=== PATIENT | female | born 1985 | race Caucasian/White ===

== ENCOUNTER 2022-11-03 14:46 | Emergency (ER) | payer OTHER, SELFPAY ==
--- NOTE | ~2022-11-03 | XR_ITS ---
EXAMINATION: XR CHEST CLINICAL INFORMATION: Chest pain COMPARISON: 2005. TECHNIQUE: 2 views of the chest were obtained. FINDINGS: No airspace consolidation or vascular congestion. Cardiac size within normal limits. The hilar regions are unremarkable. There is small blunting in a posterior sulcus on the lateral view suggesting a small effusion or pleural reaction. XR/XR chest 2V IMPRESSION: No evidence for focal infiltrate or vascular congestion. Small posterior sulcus blunting on the lateral view may reflect a small effusion or pleural reaction.
--- NOTE | ~2022-11-03 | CT_ITS ---
EXAMINATION: CT HEAD WITHOUT CONTRAST CLINICAL INFORMATION: Headache for 3 months COMPARISON: None. TECHNIQUE: Contiguous axial imaging was performed from the skull base to vertex without intravenous administration of contrast. Coronal and sagittal reformatted images are performed at the CT scanner. [This CT examination was performed using dose optimization techniques as appropriate, variously including the following: *Automated exposure control *Adjustment of mA and/or kV according to patient size (this includes techniques or standardized protocols for targeted exams where dose is matched to indication/reason for exam; i.e. extremities or head) *Use of iterative reconstruction technique] DLP: 684 mGy-cm. FINDINGS: There is no evidence of acute intracranial hemorrhage or territorial infarction. No abnormal mass-effect or midline shift is seen. Irvin to white matter differentiation is well preserved. No extra-axial fluid collections are identified. The ventricles are normal in size. There is no abnormal attenuation within the brain parenchyma. There is no osseous abnormality. The mastoid air cells and visualized portions of the paranasal sinuses are well-aerated. CT/CT head/brain wo IV con IMPRESSION: No acute intracranial pathology.
[2022-11-03 15:46] VITALS: BP 110/69; PULSE 82; RESP 20; TEMP 36.1; O2SAT 98; BMI 38.0
--- NOTE | 2022-11-03 15:46 | ED_ITS ---
HPI - Headache General Chief Complaint: Headache <JOSÉ MIGUEL Read - Last Filed: 11/03/22 15:49> Stated Complaint: Headache sent by PCP <JOSÉ MIGUEL Read - Last Filed: 11/03/22 15:49> Time Seen by Provider: 11/03/22 20:54 <JOSÉ MIGUEL Read - Last Filed: 11/03/22 15:49> Source: patient <Basilio Madden MD - Last Filed: 11/03/22 22:31> Mode of arrival: ambulatory <Basilio Madden MD - Last Filed: 11/03/22 22:31> Limitations: no limitations <Basilio Madden MD - Last Filed: 11/03/22 22:31> History of Present Illness HPI Narrative: 37-year-old female presents with headache. Symptoms started approximately 3 months ago. The location is frontal and parietal. The headache has been constant. There is at least a 6/10 pain but can take exacerbated to a 10/10 pain. Currently the pain is a 9/10. The pain is more severe, she does have photophobia. She denies any neck pain or stiffness. She denies any head injury, trauma. The pain does not radiate. There has been no fevers or chills. She denies any rashes. She has been seen by her primary care provider as well as telehealth. They prescribed her antibiotics and steroids for a possible sinus infection as well as Imitrex with propranolol. No these medications of his improved her symptoms. Today she did take ibuprofen 800 mg in the morning without improvement. She is set to have an appointment with a neurologist in [address] scan later this week. Additionally, patient complained of mild upper chest pain. The pain lasted for couple of hours that was burning and pressure in nature. Was not associated with exertion. There is no shortness of breath, palpitations, lightheadedness, lower extremity edema, orthopnea, PND, JONES. Patient has no history of recent surgery, travel, DVT, PE. <Basilio Madden MD - Last Filed: 11/03/22 22:31> MD elicited complaint: headache <Basilio Madden MD - Last Filed: 11/03/22 22:31> Onset (ago): month(s) (3) <Basilio Madden MD - Last Filed: 11/03/22 22:31> Onset description: gradually <Basilio Madden MD - Last Filed: 11/03/22 22:31> Location: frontal and parietal <Basilio Madden MD - Last Filed: 11/03/22 22:31> Severity: severe <Basilio Madden MD - Last Filed: 11/03/22 22:31> Quality & Timing: throbbing, steady, constant and pressure <Basilio Madden MD - Last Filed: 11/03/22 22:31> Exacerbating factors: light <Basilio Madden MD - Last Filed: 11/03/22 22:31> Relieving factors: nothing <Basilio Madden MD - Last Filed: 11/03/22 22:31> Associated symptoms: none <Basilio Madden MD - Last Filed: 11/03/22 22:31> Treatments prior to arrival: ibuprofen and migraine medication <Basilio Madden MD - Last Filed: 11/03/22 22:31> Related Data Home Medications: Previous Rx's Medication Instructions Recorded qwolzwbjdn-ntmmkfsgcdknv-mnsxdnsd 1 cap PO Q4-6H PRN pain #14 caps 11/03/22 50 mg-300 mg-40 mg capsule (Fioricet) <JOSÉ MIGUEL Read - Last Filed: 11/03/22 15:49> Allergies/Adverse Reactions: Allergies Allergy/AdvReac Type Severity Reaction Status Date / Time sulfamethoxazole Allergy Rash Verified 11/03/22 15:49 [From Bactrim] trimethoprim [From Bactrim] Allergy Rash Verified 11/03/22 15:49 <JOSÉ MIGUEL Read - Last Filed: 11/03/22 15:49> Review of Systems Review of Systems: CONSTITUTIONAL: Denies weight loss, fever and chills. HEENT: Denies changes in vision and hearing. RESPIRATORY: Denies SOB and cough. CV: Denies palpitations + CP. GI: Denies abdominal pain, nausea, vomiting and diarrhea. : Denies dysuria and urinary frequency. MSK: Denies myalgia and joint pain. SKIN: Denies rash and pruritus. NEUROLOGICAL: + headache no syncope. PSYCHIATRIC: Denies recent changes in mood. Denies anxiety and depression. All other ROS are negative unless in HPI <Basilio Madden MD - Last Filed: 11/03/22 22:31> [facility] Social History Social History: Social History Advance Directives: No Advance Directives Information Provided: No <JOSÉ MIGUEL Read - Last Filed: 11/03/22 15:49> Physical Exam Vital Signs: Vital Signs: Last Vital Signs Temp 98.2 F 11/03/22 18:11 Pulse 87 11/03/22 18:11 Resp 16 11/03/22 18:11 BP 99/68 11/03/22 18:11 Pulse Ox 97 11/03/22 18:11 O2 Del Method 11/03/22 18:11 BMI result Body Mass Index 38.0 <JOSÉ MIGUEL Read - Last Filed: 11/03/22 15:49> Vital Signs: Last Vital Signs Temp 98.2 F 11/03/22 18:11 Pulse 87 11/03/22 18:11 Resp 16 11/03/22 18:11 BP 99/68 11/03/22 18:11 Pulse Ox 97 11/03/22 18:11 O2 Del Method 11/03/22 18:11 BMI result Body Mass Index 38.0 <Basilio Madden MD - Last Filed: 11/03/22 22:31> GEN: Well developed, no acute distress, alert, oriented HEENT: Normocephalic, atraumatic, normal external ears, nose appears normal, no oropharyngeal edema or exudates Eyes: Normal to appearance, no papilledema, no AV nicking, no exudates, cotton wool spots or hemorrhages Neck: Supple, no lymphadenopathy Respiratory: Talks in complete sentences, no respiratory distress, clear to auscultation bilaterally Cardiovascular: Regular rate and rhythm, no murmurs rubs or gallops Abdomen: Soft, nontender, nondistended, no guarding, no rebound Back: No CVA tenderness Extremities: No clubbing cyanosis or edema Neurologic: No focal neurologic deficits, cranial nerves 2-12 intact, strength is 5/5 bilaterally, gait normal Skin: No rash <Basilio Madden MD - Last Filed: 11/03/22 22:31> Course Course Course Narrative: RME - 37 female presenting to the ER for evaluation of a tension headache for the last 10 weeks that has been worsening despite Imitrex and Propranolol. Unable to get in with neurology for another month. Last night developed intermittent left sided chest pains that radiate to the back. +nausea. No vomiting, diarrhea, or fevers. Plan: labs, medicate headache in the ER <JOSÉ MIGUEL Read - Last Filed: 11/03/22 15:49> Reevaluation(s) Reevaluation #1: Patient presents with headache. Headache minute ongoing for approximately 3 months. Examination revealed no focal neurologic deficits. She had no nuchal rigidity, neck stiffness or fever to suggest meningitis. There is no subarachnoid hemorrhage symptoms such as sudden thunderclap headache, neck stiffness. She has no focal deficits and therefore I doubt mass effect. However, given the duration of symptoms, imaging is warranted at this time. Will order CT scan. Would recommend likely MRI as an outpatient. She does have a follow-up appointment with a neurologist in approximately 1 month. Patient will have IV access obtained and multiple medications will be given order to a ttempt to abort the headache <Basilio Madden MD - Last Filed: 11/03/22 22:31> Time: 21:15 <Basilio aMdden MD - Last Filed: 11/03/22 22:31> Reevaluation #2: I discussed all results with the patient. She is currently in the process of getting treated. <Basilio Madden MD - Last Filed: 11/03/22 22:31> Time: 21:53 <Basilio Madden MD - Last Filed: 11/03/22 22:31> Reevaluation #3: Patient's pain is currently a 4/10. She will be discharged at this time. Discussed on medications, appropriate use of medications and discharge plan. All questions were addressed and answered. <Basilio Madden MD - Last Filed: 11/03/22 22:31> Time: 22:31 <Basilio Madden MD - Last Filed: 11/03/22 22:31> Medications Administered Discontinued Medications Generic Name Dose Route Start Last Admin Trade Name Freq PRN Reason Stop Dose Admin Acetaminophen/Butalbital/Caffeine 1 tab 11/03/22 21:07 11/03/22 21:33 Butalb/Acetamin/Caff 50/325/40 Tablet PO 11/03/22 21:08 1 tab ONCE ONE Administration Dexamethasone Sodium Phosphate 10 mg 11/03/22 21:07 11/03/22 21:43 Dexamethasone Sod Phosphate 10 Mg/Ml Vial IVPUSH 11/03/22 21:08 10 mg ONCE ONE Administration Dihydroergotamine Mesylate 1 mg 11/03/22 21:15 11/03/22 21:51 Dihydroergotamine Mesylate 1 Mg/Ml Ampul IVPUSH 11/03/22 22:16 1 mg Q1H JERRY Administration Diphenhydramine HCl 25 mg 11/03/22 21:07 11/03/22 21:43 Diphenhydramine Hcl 50 Mg/Ml Vial IVPUSH 11/03/22 21:08 25 mg ONCE ONE Administration Ketorolac Tromethamine 15 mg 11/03/22 21:07 11/03/22 21:43 Ketorolac Tromethamine 15 Mg/Ml Vial IVPUSH 11/03/22 21:08 15 mg ONCE ONE Administration Prochlorperazine Edisylate 10 mg 11/03/22 21:07 11/03/22 21:43 Prochlorperazine Edisylate 10 Mg/2 Ml Vial IVPUSH 11/03/22 21:08 10 mg ONCE ONE Administration <JOSÉ MIGUEL Read - Last Filed: 11/03/22 15:49> Medications Administered Discontinued Medications Generic Name Dose Route Start Last Admin Trade Name Freq PRN Reason Stop Dose Admin Acetaminophen/Butalbital/Caffeine 1 tab 11/03/22 21:07 11/03/22 21:33 Butalb/Acetamin/Caff 50/325/40 Tablet PO 11/03/22 21:08 1 tab ONCE ONE Administration Dexamethasone Sodium Phosphate 10 mg 11/03/22 21:07 11/03/22 21:43 Dexamethasone Sod Phosphate 10 Mg/Ml Vial IVPUSH 11/03/22 21:08 10 mg ONCE ONE Administration Dihydroergotamine Mesylate 1 mg 11/03/22 21:15 11/03/22 21:51 Dihydroergotamine Mesylate 1 Mg/Ml Ampul IVPUSH 11/03/22 22:16 1 mg Q1H JERRY Administration Diphenhydramine HCl 25 mg 11/03/22 21:07 11/03/22 21:43 Diphenhydramine Hcl 50 Mg/Ml Vial IVPUSH 11/03/22 21:08 25 mg ONCE ONE Administration Ketorolac Tromethamine 15 mg 11/03/22 21:07 11/03/22 21:43 Ketorolac Tromethamine 15 Mg/Ml Vial IVPUSH 11/03/22 21:08 15 mg ONCE ONE Administration Prochlorperazine Edisylate 10 mg 11/03/22 21:07 11/03/22 21:43 Prochlorperazine Edisylate 10 Mg/2 Ml Vial IVPUSH 11/03/22 21:08 10 mg ONCE ONE Administration <Basilio Madden MD - Last Filed: 11/03/22 22:31> Medical Decision Making Medical Decision Making MDM Narrative: This patient presents with headache most consistent with tension headache versus migraine. Differential diagnosis includes migraine headache, tension headache, cluster headache. There are no red flag symptoms or physical findings. Neurologic exam is without evidence of meningismus or focal neurologic deficits. Prayed patient's presentation is not consistent with an acute intracranial bleed such as a subarachnoid hemorrhage, subdural hematoma or epidural hematoma. The presentation is also not consistent with an acute REHABILITATION SERVICES DIRECTOR infection which includes meningitis, brain abscess. Given the patient's age, temporal arteritis is unlikely. It is also unlikely the patient has acute closed angle glaucoma. Presentation is not consistent with other acute/emergent causes of headache at this time. We plan to treat the patient symptomatically with pain medications. We will obtain a CT scan given the duration of her symptoms. There is no definite indication for LP at this time. The plan for the patient will be CT scan of the brain and serial reassessments. Additionally, patient complained of chest pain earlier today. She feels that this is most likely indigestion. Her chest pain was not associated with exertion. There is no shortness of breath, palpitations, lightheadedness. EKG is nonischemic. Will undertake routine laboratory analysis to further assess this. <Basilio Madden MD - Last Filed: 11/03/22 22:31> Differential Diagnosis Differential Diagnoses: The differential diagnosis associated with the presentation includes (Tension headache, migraine headache, cluster headache, sinus headache, doubt subarachnoid hemorrhage, subdural hematoma, epidural hematoma, REHABILITATION SERVICES DIRECTOR infection) <Basilio Madden MD - Last Filed: 11/03/22 22:31> Admission/Observation Consideration of admission/observation: Escalation of care including admission/observation considered <Basilio Madden MD - Last Filed: 11/03/22 22:31> Lab Data MDM Lab Attestation statement: I reviewed the patient's lab results. <Basilio Madden MD - Last Filed: 11/03/22 22:31> Result Diagrams: 11/03/22 17:58 11/03/22 17:58 <JOSÉ MIGUEL Read - Last Filed: 11/03/22 15:49> Labs: Lab Results 11/03/22 11/03/22 11/03/22 Range/Units 17:58 17:58 17:58 WBC 11.6 H (4.8-10.8) X10*3/uL RBC 4.93 (4.20-5.50) X10*6/uL Hgb 14.8 (12.0-16.0) g/dl Hct 45.1 (37.0-47.0) % MCV 91.5 (80.0-98.0) fL MCH 30.0 (27.0-33.0) pg MCHC 32.8 (31.0-35.0) g/dl RDW 14.0 (11.0-16.0) % Plt Count 268 (160-400) X10*3/uL MPV 10.1 (9.4-12.3) fL Immature Gran % (Auto) 0.8 H (0.0-0.4) % Neut % (Auto) 81.1 H (45-73) % Lymph % (Auto) 12.3 L (20-40) % Mccormick % (Auto) 4.7 (2-11) % Eos % (Auto) 0.8 (0-4) % Baso % (Auto) 0.3 (0-2) % Lymph # (Auto) 1.4 (1.2-4.9) X10*3/uL Mccormick # (Auto) 0.6 (0.1-1.2) X10*3/uL Eos # (Auto) 0.1 (0.0-0.4) X10*3/uL Baso # (Auto) 0.0 (0.0-0.2) X10*3/uL Abs Immat Gran (auto) 0.09 H (0.00-0.03) X10*3/uL Absolute Neuts (auto) 9.5 H (2.0-8.3) x10*3/uL Absolute Nucleated RBC 0.000 (0.0-0.012) X10*3/uL Nucleated RBC % (auto) 0.0 (0.0-0.2) /100WBC Sodium 139 (135-145) mmol/L Potassium 4.0 (3.3-5.1) mmol/L Chloride 103 (96-108) mmol/L Carbon Dioxide 26 (22-29) mmol/L Anion Gap 14 (12-20) BUN 18 H (9-16) mg/dL Creatinine 0.81 (0.5-1.4) mg/dL Estim Creat Clear Calc 103.7 Estimated GFR > 60 Random Glucose 103 (60-115) mg/dL Calcium 8.8 (8.4-10.2) mg/dL Magnesium 2.2 (1.6-2.6) mg/dL Total Bilirubin 0.6 (0.0-1.0) mg/dL Direct Bilirubin 0.2 (0.0-0.5) mg/dL AST 19 (5-31) U/L ALT 19 (0-31) U/L Alkaline Phosphatase 75 (39-117) U/L Total Protein 6.8 (6.5-8.0) g/dL Albumin 4.2 (3.5-5.0) g/dL Lipase 24 (8-78) U/L Urine Color Yellow Urine Appearance Clear Urine pH 5.5 (5.0-9.0) Ur Specific Bandon 1.025 (1.005-1.025) Urine Protein Negative (Neg-Trace) mg/dL Urine Glucose (UA) Negative (Negative) mg/dL Urine Ketones Negative (Negative) mg/dL Urine Blood Negative (Negative) Urine Nitrite Negative (Negative) Ur Leukocyte Esterase Negative (Negative) <JOSÉ MIGUEL Read - Last Filed: 11/03/22 15:49> Lab Results 11/03/22 11/03/22 11/03/22 Range/Units 17:58 17:58 17:58 WBC 11.6 H (4.8-10.8) X10*3/uL RBC 4.93 (4.20-5.50) X10*6/uL Hgb 14.8 (12.0-16.0) g/dl Hct 45.1 (37.0-47.0) % MCV 91.5 (80.0-98.0) fL MCH 30.0 (27.0-33.0) pg MCHC 32.8 (31.0-35.0) g/dl RDW 14.0 (11.0-16.0) % Plt Count 268 (160-400) X10*3/uL MPV 10.1 (9.4-12.3) fL Immature Gran % (Auto) 0.8 H (0.0-0.4) % Neut % (Auto) 81.1 H (45-73) % Lymph % (Auto) 12.3 L (20-40) % Mccormick % (Auto) 4.7 (2-11) % Eos % (Auto) 0.8 (0-4) % Baso % (Auto) 0.3 (0-2) % Lymph # (Auto) 1.4 (1.2-4.9) X10*3/uL Mccormick # (Auto) 0.6 (0.1-1.2) X10*3/uL Eos # (Auto) 0.1 (0.0-0.4) X10*3/uL Baso # (Auto) 0.0 (0.0-0.2) X10*3/uL Abs Immat Gran (auto) 0.09 H (0.00-0.03) X10*3/uL Absolute Neuts (auto) 9.5 H (2.0-8.3) x10*3/uL Absolute Nucleated RBC 0.000 (0.0-0.012) X10*3/uL Nucleated RBC % (auto) 0.0 (0.0-0.2) /100WBC Sodium 139 (135-145) mmol/L Potassium 4.0 (3.3-5.1) mmol/L Chloride 103 (96-108) mmol/L Carbon Dioxide 26 (22-29) mmol/L Anion Gap 14 (12-20) BUN 18 H (9-16) mg/dL Creatinine 0.81 (0.5-1.4) mg/dL Estim Creat Clear Calc 103.7 Estimated GFR > 60 Random Glucose 103 (60-115) mg/dL Calcium 8.8 (8.4-10.2) mg/dL Magnesium 2.2 (1.6-2.6) mg/dL Total Bilirubin 0.6 (0.0-1.0) mg/dL Direct Bilirubin 0.2 (0.0-0.5) mg/dL AST 19 (5-31) U/L ALT 19 (0-31) U/L Alkaline Phosphatase 75 (39-117) U/L Total Protein 6.8 (6.5-8.0) g/dL Albumin 4.2 (3.5-5.0) g/dL Lipase 24 (8-78) U/L Urine Color Yellow Urine Appearance Clear Urine pH 5.5 (5.0-9.0) Ur Specific Bandon 1.025 (1.005-1.025) Urine Protein Negative (Neg-Trace) mg/dL Urine Glucose (UA) Negative (Negative) mg/dL Urine Ketones Negative (Negative) mg/dL Urine Blood Negative (Negative) Urine Nitrite Negative (Negative) Ur Leukocyte Esterase Negative (Negative) <Basilio Madden MD - Last Filed: 11/03/22 22:31> Independent Interpretation I performed an independent interpretation of an: EKG (Normal sinus rhythm heart rate 82, normal intervals, no acute ST elevations or depressions, poor precordial progression likely secondary to lead placement), Plain X-Ray (No acute cardiopulmonary disease) and CT Scan (CT brain no acute intracranial findings, no evidence of sinusitis) <Basilio Madden MD - Last Filed: 11/03/22 22:31> Radiology Impression Discussion of test interpretation with radiology: I have reviewed the radiologist's reading. (IMPRESSION: No evidence for focal infiltrate or vascular congestion. Small posterior sulcus blunting on the lateral view may reflect a small effusion or pleural reaction. Dictated By:Carson ObrienSigned By:<Electronically signed by Carson Obrien in OV>11/03/22 1629) <Basilio Madden MD - Last Filed: 11/03/22 22:31> Radiologist Impression: IMPRESSION: No acute intracranial pathology. ? ? Dictated By: Sudheer Carroll MD Signed By: <Electronically signed by Sudheer Carroll MD in OV> 11/03/22 8151 <Basilio Madden MD - Last Filed: 11/03/22 22:31> External Record Review No additional records available <Basilio Madden MD - Last Filed: 11/03/22 22:31> Prescription Management I considered prescription management with: Pain Medication <Basilio Madden MD - Last Filed: 11/03/22 22:31> Discharge Plan Discharge Clinical Impression: Headache, Atypical chest pain <JOSÉ MIGUEL Read - Last Filed: 11/03/22 15:49> Patient Disposition: Home, Self-Care <JOSÉ MIGUEL Read - Last Filed: 11/03/22 15:49> Instructions: Chest Pain (DC), Acute Headache (ED), General Headache (ED) <JOSÉ MIGUEL Read - Last Filed: 11/03/22 15:49> Prescriptions: New ceditpshng-ahphzgktituby-xocy [Fioricet] 50-300-40 mg capsule 1 cap PO Q4-6H PRN (Reason: pain) Qty: 14 0RF <JOSÉ MIGUEL Read - Last Filed: 11/03/22 15:49> Referrals: Fany Covington MD [Primary Care Provider] - 1 week <JOSÉ MIGUEL Read - Last Filed: 11/03/22 15:49>
--- NOTE | 2022-11-03 15:49 | ECG_ITS ---
Test Reason : HEADACHE Blood Pressure : / mmHG Vent. Rate : 082 BPM Atrial Rate : 082 BPM P-R Int : 160 ms QRS Dur : 078 ms QT Int : 366 ms P-R-T Axes : 064 034 039 degrees QTc Int : 427 ms Normal sinus rhythm Anteroseptal infarct , age undetermined Abnormal ECG No previous ECGs available Referred By: Floridalma Choi Electronically Signed By:ABRIL STANLEY
[2022-11-03 18:11] VITALS: BP 99/68; PULSE 87; RESP 16; TEMP 36.8; O2SAT 97
[2022-11-03 18:16] LABS: MANUAL DIFF FLAG NO
[2022-11-03 18:19] LABS: Appearance Urine Clear; Color Urine Yellow; Glucose Urine UA Negative (Negative); Leukocyte Esterase Urine Negative (Negative); Nitrite Urine Negative (Negative); PH 5.5 (5.0-9.0); Specific Gravity - Urine 1.025 (1.005-1.025); Urine Blood Negative (Negative); Urine Ketones Negative (Negative); Urine Protein Negative (Neg-Trace)
[2022-11-03 18:33] LABS: Alanine Aminotransferase 19 U/L (0-31); Albumin Level 4.2 g/dL (3.5-5.0); Alkaline Phosphatase 75 U/L (39-117); Anion Gap 14 (12-20); Aspartate Amino Transferase 19 U/L (5-31); Bilirubin Direct 0.2 mg/dL (0.0-0.5); Bilirubin Total 0.6 mg/dL (0.0-1.0); Blood Urea Nitrogen 18 mg/dL (9-16); Calcium 8.8 mg/dL (8.4-10.2); Carbon Dioxide 26 mmol/L (22-29); Chloride 103 mmol/L (96-108); Creatinine Clr Calc Pharmacy 103.7; Estimated Glomerular Filt Rate > 60; Glucose Random 103 mg/dL (60-115); Lipase 24 U/L (8-78); Magnesium 2.2 mg/dL (1.6-2.6); Sodium 139 mmol/L (135-145); Total Protein 6.8 g/dL (6.5-8.0)
[2022-11-03 18:36] LABS: Basophils Percent Auto 0.3 % (0-2); Eosinophils Absolute Auto 0.1 X10*3/uL (0.0-0.4); Eosinophils Percent Auto 0.8 % (0-4); Hematocrit 45.1 % (37.0-47.0); Hemoglobin 14.8 g/dl (12.0-16.0); Imm Gran Abs Auto 0.09 X10*3/uL (0.00-0.03); Imm Gran Pct Auto 0.8 % (0.0-0.4); Lymphocytes Absolute Auto 1.4 X10*3/uL (1.2-4.9); Lymphocytes Percent Auto 12.3 % (20-40); Mean Corpuscular HGB Conc 32.8 g/dl (31.0-35.0); Mean Corpuscular Volume 91.5 fL (80.0-98.0); Mean Platelet Volume 10.1 fL (9.4-12.3); Monocytes Absolute Auto 0.6 X10*3/uL (0.1-1.2); Monocytes Percent Auto 4.7 % (2-11); Neutrophils Absolute Auto 9.5 x10*3/uL (2.0-8.3); Neutrophils Percent Auto 81.1 % (45-73); Platelet Count 268 X10*3/uL (160-400); Red Blood Count 4.93 X10*6/uL (4.20-5.50); White Blood Count 11.6 X10*3/uL (4.8-10.8)
[2022-11-03] MEDS: Butalb/Acetamin/Caff 50/325/40 TABLET 1 TAB PO (21:33)
[2022-11-03] MEDS: Prochlorperazine Edisylate 10 MG/2 ML VIAL IVPUSH (21:43)
[2022-11-03] MEDS: Ketorolac Tromethamine 15 MG/ML VIAL IVPUSH (21:43)
[2022-11-03] MEDS: dexAMETHasone sod phosphate 10 MG/ML VIAL IVPUSH (21:43)
[2022-11-03] MEDS: diphenhydrAMINE HCL 50 MG/ML VIAL 25 MG IVPUSH (21:43)
[2022-11-03] MEDS: Dihydroergotamine Mesylate 1 MG/ML AMPUL IVPUSH (21:51)
--- NOTE | 2022-11-03 21:56 | PC.NURSE ---
pt medicated per provider order for 05/10 migraine, provider at bedside.
[2022-11-06 08:33] LABS: Lyme Abs Screen <0.90 index
== END 2022-11-03 22:59 | disposition home or self-care (01) ==
PROVIDERS: Physician Assistant; Emergency Provider Emergency Medicine; PCP Internal Medicine
DX: R51.9 Headache, unspecified (principal); R07.89 Other chest pain; Z79.899 Other long term (current) drug therapy
CPT/HCPCS: 36415; 70450; 71046; 80048; 80076; 81003; 83690; 83735; 85025; 86617; 86618; 93005; 96374; 96375; 99284; J1100; J1110; J1200; J1885

== ENCOUNTER 2024-11-04 12:28 | Outpatient (AMB) | payer OTHER, SELFPAY ==
--- NOTE | 2024-11-04 12:29 | A.OFFVIS_ITS ---
Vital Signs 11/04/24 12:30 Height 5 ft 3 in Weight 217 lb BMI 38.4 BP 134/72 Blood Pressure Location Lt brachial Respiration 16 Pulse 101 H Pulse Source Pulse Oximeter Pulse Oximetry (%) 97 Oxygen Delivery Method Room Air Intake Visit Reasons: Chronic Intractable Headaches Storage Management Architect Required: No Allergies sulfamethoxazole [From Bactrim] Allergy (Verified 11/04/24 12:31) Rash trimethoprim [From Bactrim] Allergy (Verified 11/04/24 12:31) Rash Medication List - Last Reconciled 11/04/24 by Joanne Doss LPN atomoxetine (Strattera) 36 mg PO DAILY cholecalciferol (vitamin D3) 50 mcg PO DAILY loratadine (Claritin) 10 mg PO DAILY methylphenidate HCl ER (Concerta) 18 mg PO DAILY norethindrone-e.estradiol-iron 1 mg-20 mcg (21)/75 mg (7) (Blisovi Fe 09/19 (28)) 1 tab PO DAILY sertraline 100 mg PO DAILY HPI HPI Chronic Intractable Headaches: Details: History of Present Illness The patient is a 39-year-old female presenting with chronic intractable headache. She reports daily headaches, unresponsive to multiple treatments including Amovig, triptans, beta blockers, antiepileptics, and antineuropathics. She even completed 6 months of acylovir to rule out viral meningitis as a cause. Diagnostic imaging and spinal taps have been negative, and physical therapy failed to provide relief. Massage therapy offers modest symptom relief. Neck stiffness and poor daytime fatigue from inadequate sleep quality persist. Symptoms originate from the occipital region and radiate to the crown and frontal parts of the head. Pain Description - Onset and Timing: Persistent daily headaches since November of the previous year. - Quality: Chronic and intractable. - Primary Location: Occipital region with radiation to the crown and frontal parts of the head. - Factors Alleviating Pain: Massage therapy every three weeks provides some reduction in intensity. 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 Physical Exam - Appears afebrile. - Alert and oriented. - Mood and affect appropriate. - Follows and participates in conversation appropriately. - Respiratory effort is unlabored. - Able to transition from sit to stand unassisted. - Ambulates with bilaterally normal heel strike and toe off. - Able to stand and walk on toes and heels. Results - MRI Brain: Negative - Spinal Tap: Negative Pain Management - Affect: Reports fatigue due to poor sleep quality; no mood disturbances explicitly mentioned. - Analgesia: Multiple ineffective pharmacological treatments; massage therapy provides some relief. - Adverse Effects: Not explicitly noted during the conversation. - Activities of Daily Living: Fatigue impacts daily activities and work; sleep affected. - Aberrant Drug Related Behaviors: None reported. Physical Exam Vital Signs: Last Vital Signs Pulse 101 H 11/04/24 12:30 Resp 16 11/04/24 12:30 BP 134/72 11/04/24 12:30 Pulse Ox 97 11/04/24 12:30 Oxygen Delivery Method Room Air 11/04/24 12:30 BMI result Body Mass Index 38.4 Assessment & Plan Assessment & Plan (1) Migraine headache: Code(s): G43.909 - Migraine, unspecified, not intractable, without status migrainosus Category: Medical (2) Occipital neuralgia: Code(s): M54.81 - Occipital neuralgia Category: Medical Plan Plan For the management of chronic intractable headache, a trial of Botox following the migraine protocol is recommended to assess its effectiveness. Should the Botox trial not yield desired results, exploring the option of occipital nerve stimulation for occipital neuralgia might be necessary. The patient understands and has agreed to proceed once authorization is obtained. Patient was informed and verbally consented to the use of an ambient scribe for clinic note documentation during this visit. Discussion Notes I discussed with the patient the persistent nature of her chronic intractable headaches and proposed a trial of Botox per the migraine protocol in an effort to alleviate symptoms. We also reviewed the possibility of occipital nerve stimulation as an alternative if Botox does not provide sufficient relief. The patient was informed about the procedure's potential benefits, risks, and the need for authorization before proceeding. She expressed understanding and consent to proceed with the trial pending authorization. Patient Instructions - Wait for prior authorization for Botox therapy and follow up on its progress. - Continue engaging in regular massage therapy every three weeks as it provides some relief. - Maintain a daily stretching regimen and ensure comfortable work posture. - Monitor headache patterns and sleep quality, reporting any changes. Coding Level of Care Code New Pt Level 4 (24973) Diagnoses Migraine headache G43.909 Occipital neuralgia M54.81
[2024-11-04 12:30] VITALS: BP 134/72; PULSE 101; RESP 16; O2SAT 97; BMI 38.4
--- OUTSIDE RECORDS SUMMARY | 2024-11-04 14:06 | XMS_ITS ---
Author Organization [facility] Address [address] [place] [address] Care Team Providers Care Animal Laboratory Helper Name Role Phone Ashok Perrin Primary Care Provider Tanvir Zepeda Unavailable [phone] REASON FOR VISIT NO CONTACT WITH PATIENT [...] 10 MG Oral for 10 Days Not-Taking Jwmruvbpky-KSYU-Cbskvvgj 50-325-40 MG Oral for 5 Days Not-Taking [...] Active Encounters Encounter Location Date Provider Diagnosis [facility], [address] [place] [address] 08/03/2024 Tanvir Mcdermott Plan Of Treatment No Information Progress Notes * Gosia BEEDOB: 3 (39 yo F)Acc No.[id number]:08/03/2024 Patient:?Gosia BEE Provider:?Tanvir Mcdermott MD :1985???Age:39 Y???Sex:Female D ate:08/03/2024 Address:[address] [place] [id number] Pcp:Ashok Perrin Subjective: * Chief Complaints: * ???1. NO CONTACT WITH PATICARLA T BY TELEPHONE, HEALOW OR ZOOM.. * Medical History:? * Medications:?Taking Fexofena dine HCl 180 MG Tablet 1 tablet Swallow whole with water; do not take with fruit juices. Orally Once a day , Taking Ibuprofen 200 MG Tablet 4 tabs prn Orally Three times a day uses 20 tabs/week, Taking Vitamin D 50 MCG (1999 UT) Tablet 1 tablet Orally Once a day , Taking 1.5-30 MG-MCG Tablet TAKE 1 TABLET BY [...] predniSONE 10 MG Tablet Oral , Not-Taking Cmowympdnx-HRIG-Amhapjfj 50-325-40 MG Tablet Oral , Not-Taking Propranolol [...] Pack FOLLOW PACKAGE DIRECTIONS Oral Objective: * Vitals:? Assessment: Plan: * Treatment: * Billing Information: * Visit Code:? * Procedure Codes:? * Electronic [place], [id number] on 11/04/2024 at 02:05 PM EST Sign off status: Pending * Provider:?Tanvir Mcdermott MD Date:?11/2023 Generated for Chio reis/Loren/Delonitting on:?11/04/2024 02:05 PM EST
--- OUTSIDE RECORDS SUMMARY | 2024-11-04 14:06 | XMS_ITS | Clinical Summary ---
Author Organization [facility] Address [address] [place] [address] Care Team Providers Care Compressed Gas Tester Name Role Phone Fany Covington MD Primary Care Provider [phone] Allergies Active Allergy Reactions Criticality Noted Date Comments Meperidine Itching 04/05/2008 Sulfamethoxazole-Trimethoprim Rash Low 2021 Medications Medication Sig Dispensed Refills Start Date End Date Status loratadine (CLARITIN) 10 MG tablet Take 1 tablet (10 mg total) by mouth daily. 0 Active sertraline (ZOLOFT) 100 MG tablet Take 1 tablet (100 mg total) by mouth daily. 0 Active vitamin D3 (cholecalciferol) 25 MCG (1000 UT) tablet Take 1 tablet (25 mcg total) by mouth daily. 0 Active Magnesium 400 MG TABS Take 400 mg by mouth daily. 30 tablet 3 12/16/2022 Active Riboflavin 400 MG CAPS Take 400 mg by mouth daily. 30 capsule 0 12/16/2022 Active Junel FE 1.530 1.5-30 MG-MCG tablet Take 1 tablet by mouth daily. 0 02/27/2023 Active Multiple Vitamins-Minerals (HAIR SKIN AND NAILS FORMULA PO) Take by mouth. 0 Active butalbital-acetaminop hen-caffeine 50-325-40 MG per tablet Take 1 tablet by mouth every 4 (four) hours as needed for pain. 20 tablet 0 07/17/2023 Active Active Problems No known active problems Family History Medical History Relation Name Comments No Sig Med Hx Father No Sig Med Hx Mother Relation Name Status Comments Father Alive Mother Alive Social History Tobacco Use Types Packs/Day Years Used Date Smoking Tobacco: Never Passive Smoke Exposure: Never Smokeless Tobacco: Never Tobacco Cessation:Counseling Given: Not Answered Alcohol Use Standard Drinks/Week Comments Not Currently 0 (1 standard drink = 0.6 oz pur e alcohol) Sex and Gender Information Value Date Recorded Sex Assigned at Female 10/30/2022 6:48 AM EST Gender Identity Not on file Sexual Orientation Not on file Job Start Date Occupation Industry Not on file Not on file Not on file Last Filed Vital Signs Vital Sign Reading Time Taken Comments Blood Pressure 105/73 07/17/2023 9:12 AM EST Pulse 73 07/17/2023 9:12 AM EST Temperature 36.1 ??C (96.9 ??F) 07/17/2023 9:12 AM ES T Respiratory Rate 16 03/17/2023 10:16 AM EDT Oxygen Saturation 97% 07/17/2023 9:12 AM EST Inhaled Oxygen Concentration - - Weight 98.9 kg (218 lb) 07/17/2023 9:12 AM EST Height 157.5 cm (5' 2 ) 07/17/2023 9:12 AM EST Body Mass Index 39.87 07/17/2023 9:12 AM EST Plan of Treatment Health Maintenance Due Date Last Done Comments Hepatitis B Vaccines (1 of 3 - 3-dose series) 1983 Hepatitis C Screening 1983 Depression Screening 1995 BMI Counseling 2001 Preventative Health Evaluation 2001 Cervical Cancer Screening (Pap Smear) 2004 COVID-19 Vaccine ( season) 2024 08/26/2021 Influenza Vaccine (#1) 2024 , 06/26/2020, 07/07/2018, Additional history exists DTap / Tdap / Td (4 - Td or Tdap) 08/18/2026 08/18/2016, 12/11/2012, 04/05/2008 Pneumococcal Vaccine Aged Out No long er eligible based on patient's age to complete this topic RSV Ped < 20 months Aged Out No longe r eligible based on patient's age to complete this topic Care Teams Compressed Gas Tester Relationship Specialty Start Date End Date Fany Covington MD PCP - General Internal Medicine 12/16/22
--- OUTSIDE RECORDS SUMMARY | 2024-11-04 14:06 | XMS_ITS | Clinical Summary ---
Author Organization [address] Address [address] [place], [place] [address] [address] Phone Care Team Providers Care Alterations Manager Name Role Phone Fany Covington MD Primary Care Provider [phone] Allergies Active Allergy Reactions Criticality Noted Date Comments Meperidine Hcl Itching 04/05/2008 Metoclopramide Hcl 11/11/2022 Irritability Sulfamethoxazole-Trimethoprim Rash Low 2021 Medications cholecalciferol (VITAMIN D-3) 25 mcg (1,000 unit) tablet Take 1 tablet (1,000 Units total) by mouth 1 (one) time each day. Active fexofenadine (SADI) 180 mg tablet Take 1 tablet (180 mg total) by mouth 1 (one) time each day. 4 Active norethindrone-e thinyl estradiol-iron (Junel FE .,) 1.5 mg-30 mcg (21)/75 mg (7) per tablet Take 1 tablet by mouth 1 (one) time each day. 3 Active sertraline (ZOLOFT) 100 mg tablet Take 1 tablet (100 mg total) by mouth 1 (one) time each day. 4 Active MULTIVITAMIN ORAL Take 1 capsule by mouth daily. Active methylphenidate 18 mg ER tablet Take 1 tablet (18 mg total) by mouth 1 (one) time each day. Do not crush, chew, or split. Max Daily Amount: 18 mg Active atomoxetine (STRATTERA) 100 mg capsule Take 1 capsule (100 mg total) by mouth 1 (one) time each day. Swallow capsule whole; do not open. If opened accidentally, do not touch eyes; wash hands immediately (product is an eye irritant). Active Active Problems Problem Noted Date Diagnosed Date ADHD 02/29/2024 Vitamin D deficiency 11/19/2023 Thyroiditis 01/29/2022 COVID-19 03/16/2020 Overview (06/14/2024): Positive antibody test - never had positive PCR test. Has had multiple episodes of pneumonia since this year. Following with pulmo Migraine 10/14/2018 Overview (06/14/2024): Sees Dr. 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 (LGSIL) 12/08/2011 Overview (06/14/2024): 11/27/11, sees Dr Morrison, [facility] flue gas analyst HPV positive 2017 Nephrolithiasis 08/03/2008 Raynaud disease 04/05/2008 Overview (06/14/2024): Toes Depression 04/05/2008 Overview (06/14/2024): Sees psychiatrist Allergic rhinitis 04/05/2008 Encounters Date Type Department Care Team Description 09/05/2024 11:00 AM EST Office Visit Adult Medicine [address] [address] Fany Covington MD Chronic intractable headache, unspecified headache type (Primary Dx) from Last 3 Months Immunizations Name Administration Dates Next Due Influenza Quadravalent, MDCK , 0.5ml, preservative free (Flucelvax) 6mo and older 08/26/2021 Influenza trivalent, 0.5mL, preservative free (Fluarix; FluLaval; Fluzone) ages 6mo and older (Afluria) 3 years and older 06/26/2020,07/07/2018,06/21/2012 Influenza trivalent, MDCK, 0 .5mL, preservative free (Flucelvax) 6mo and older 09/05/2024 Pfizer SARS-CoV-2 COVID-19, mRNA, LNP-S, preservative free 08/26/2021 Tdap Tetanus diptheria acell ular pertussis (Boostrix; Adacel) 7yo and older 08/18/2016,12/11/2012,04/05/2008 Surgical History Surgery Date Site/Laterality Comments KNEE SURGERY 08/31, 02/28 Bilateral left, right lateral release WRIST SURGERY 06/04 Right right SECTION 12/11/12 WISDOM TOOTH EXTRACTION Medical History Medical History Date Comments Depression 04/05/2008 Allergic rhinitis 04/05/2008 Raynaud disease 04/05/2008 Toes Historical Medical DX 12/08/2011 LSIL , sees Dr Morrison, [facility] flue gas analyst Nephrolithiasis 08/03/2008 DX:Nephrolithias is IBS (irritable bowel syndrome) 08/07/2014 Thyroiditis 01/29/2022 Vitamin D deficiency 11/19/2023 Adhd 02/29/2024 Family History * Patient is adopted Medical History Relation Name Comments Breast cancer Aunt 1 2 aunts, 1 mat ernal and 1 paternal Other: cardiac arrest, also breast cancer Aunt 2 Heart attack Maternal Grandfather ca lung Heart attack Maternal Grandmother glaucom a, cholesterol, lung cancer Stroke Mother Lung cancer Paternal Grandfather Diabetes Paternal Grandmother stroke Heart attack Uncle Relation Name Status Comments Aunt 1 Aunt 2 Other Maternal Grandfather Maternal Grandmother Alive Mother Paternal Grandfather Paternal Grandmother Uncle Social History Tobacco Use Types Packs/Day Years Used Date Smoking Tobacco: Former Cigarettes Q uit: 04/30/2011 Smokeless Tobacco: Never Tobacco Cessation:Counseling Given: Not Answered Alcohol Use Standard Drinks/Week Comments No 0.8 (1 standard drink = 0.6 oz p ure alcohol) Comments Unknown Sex and Gender Information Value Date Recorded Sex Assigned at Not on file Legal Sex Female 7:10 AM EST Gender Identity Not on file Sexual Orientation Not on file Obstetrics History Last Filed Vital Signs Vital Sign Reading Time Taken Comments Blood Pressure 104/62 09/05/2024 11:19 AM EST Pulse 98 09/05/2024 11:19 AM EST Temperature 36.9 ??C (98.4 ??F) 09/05/2024 1 1:19 AM EST Respiratory Rate 16 09/05/2024 11:1 9 AM EST Oxygen Saturation 98% 09/05/2024 11: 19 AM EST Inhaled Oxygen Concentration - - Weight 97.4 kg (214 lb 11.2 oz) 025 11:19 AM EST Height 160 cm (5' 3 ) 09/05/2024 11:19 AM EST Body Mass Index 38.03 09/05/2024 11:19 AM EST Plan of Treatment Health Maintenance Due Date Last Done Comments Hepatitis B Vaccines (1 of 3 - 19+ 3-dose series) 2002 Depression Screening 08/03/2022 HIV Screening 08/03/2022 Hepatitis C Screening 08/03/2022 Social Influencers of Health Screening 08/03/2022 COVID-19 Vaccine ( season) 2024 08/26/2021, 01/11/2021, 12/14/2020 Breast Cancer Screening 06/12/2025 06/12/2023 Cervical Cancer Screening: Pap Smear 02/27/2026 02/27/2023 DTaP,Tdap,and Td Vaccines (4 - Td or Tdap) 08/18/2026 08/18/2016, 12/11/2012, 04/05/2008 Cholesterol Screening (Lipid Panel) 01/29/2027 01/29/2022 Influenza Vaccine Completed 09/05/2024, , 06/26/2020, Additional history exists HIB Vaccines Aged Out No longer eligi ble based on patient's age to complete this topic HPV Vaccines Aged Out No longer eligi ble based on patient's age to complete this topic Hepatitis A Vaccines Aged Out No long er eligible based on patient's age to complete this topic IPV Vaccines Aged Out No longer eligi ble based on patient's age to complete this topic MMR Vaccines Aged Out No longer eligi ble based on patient's age to complete this topic Meningococcal ACWY Vaccine Aged Out N o longer eligible based on patient's age to complete this topic Meningococcal B Vacine Aged Out No lo nger eligible based on patient's age to complete this topic Pneumococcal Vaccine: Pediatrics (0 to 5 Years) and At-Risk Patients (6 to 64 Years) Aged Out No longer eligible based on patient's age to complete this topic RSV Immunization Patients Under 20 months Aged Out No longer eligible based on patient's age to complete this topic Varicella Vaccines Aged Out No longer eligible based on patient's age to complete this topic Procedures Procedure Name Priority Date/Time Associated Diagnosis Comments MAMMOGRAPHY Routine 06/12/2023 PAP SMEAR Routine 02/27/2023 LIPID PANEL Routine 01/29/2022 from Last 3 Months or Most Recently Relevant to Health Maintenance Results * Mammography (06/12/2023) Mammogram Negative Anatomical Region Laterality Modality Other Historical Provider MD HEALTH MAINTENANCE Final Result * Pap Smear (02/27/2023) Pap smear Negative Historical Provider HEALTH MAINTENANCE Final Result * Lipid panel (01/29/2022) LDL/HDL Ratio 4 Triglycerides 142 mg/dL Cholesterol 181 mg/dL HDL 45 mg/dL LDL Cholesterol 108 mg/dL Blood Venous blood specimen / Unknown Historical Provider LAB BLOOD ORDERABLES Caitie l Result from Last 3 Months or Most Recently Relevant to Health Maintenance [place] [id number] [facility] Care Teams Alterations Manager Relationship Specialty Start Date End Date Fany Covington MD [address] [place] [address] PCP - General Internal Medicine 05/02/21
--- OUTSIDE RECORDS SUMMARY | 2024-11-04 14:06 | XMS_ITS ---
Author Organization [facility] Address [address] [place] [address] Care Team Providers Care System Administrator Name Role Phone Ashok Perrin Primary Care Provider Unav ailable Tanvir Mcdermott Unavailable [phone] REASON FOR VISIT Qulipta Denial Encounters Encounter Location Date Provider Diagnosis [facility] [address] [place] [address] 05/04/2024 Tanvir Mcdermott Plan Of Treatment No Information Progress Notes * Gladis BEEjorgeDOB: 3 (39 yo F)Acc No.[id number]:05/04/2024 Patient:?Gosia BEE :1985???Age:39 Y???Sex:Female Address: [place] [address] * true * Date:? Generated for Carmeli smiley/Loren/eTransmitting on:?11/04/2024 02:05 PM EST
--- OUTSIDE RECORDS SUMMARY | 2024-11-04 14:06 | XMS_ITS | Patient Health Record ---
Author Organization [facility] Address [address] [place] [address] Care Team Providers Care Numerical Control Tool Programmer Name Role Phone Ashok Perrin Primary Care Provider Tanvir Zepeda Unavailable [phone] Allergies Allergen (clinical drug ingredient) Drug/Non Drug Allergy documented on EMR Reaction Allergy Type Onset Date Status sulfamethoxazole / trimethoprim Bactrim rash Drug Allergy Active Reason For Referral No Information Medications Medication SIG (Take, Route, Frequency, Duration) Notes Start Date End Date Status predniSONE 10 MG Oral for 10 Days Not-Taking Qwqdpsokes-PZFG-Gmclompj 50-325-40 MG Oral for 5 Days Not-Taking Propranolol HCl 40 MG TAKE 1 TABLET BY MOUTH DAILY Oral for 30 Days Not-Taking Fexofenadine HCl 180 MG 1 tablet Swallow whole with water; do not take with fruit juices. Orally Once a day 09/07/2023 Active Fluticasone Propionate 50 MCG/ACT SHAKE GENTLY AND PRIME PUMP BEFORE USE THEN ADMINISTER 2 SPRAYS INTO EACH NOSTRIL EVERY AM THEN AFTER USE CLEAN TIP AND REPLACE LID. Nasal for 30 Days Not-Taking Ibuprofen 200 MG 4 tabs prn Orally Three times a day uses 20 tabs/week 06/09/2023 Active methylPREDNISolone 4 MG FOLLOW PACKAGE DIRECTIONS Oral for 6 Days Not-Taking Vitamin D 50 MCG (2000 UT) 1 tablet Oral ly Once a day 06/09/2023 Active Gabapentin 400 MG 1 capsule Orally every 8 hours whenever needed for pain. 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 Level of education: finished college Tobacco Use/Smoking Question Answer Notes Tobacco use: nonsmoker Problems Problem Type SNOMED Code ICD Code Onset Dates Problem Status W/U Status Risk Notes Problem Chronic intractable migraine without aura (662792204007142 ) Chronic migraine without aura, intractable, with status migrainosus (G43.711) Active confirmed Vital Signs Heart Rate 100 /min 04/12/2024 Blood pressure diastolic 88 mm Hg 04/12/2024 Weight-kg 98.84 kg 04/12/2024 Height 63 in 04/12/2024 Blood pressure systolic 127 mm Hg 04/12/2024 Weight 217.9 lbs 04/12/2024 BMI 38.6 kg/m2 04/12/2024 Encounters Encounter [facility] Date [facility] 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 [address] [place] [address] 12/24/2023 Tanvir Mcdermott [facility] [address] [place] [address] 12/30/2023 Tanvir Mcdermott [facility] [address] [place] [address] 12/30/2023 Tanvir Mcdermott [facility] [address] [place] [address] 01/26/2024 Tanvir Mcdermott [facility] [address] [place] [address] 02/10/2024 Tanvir Mcdermott [facility] [address] [place] [address] 03/07/2024 Tanvir Mcdermott [facility] [address] [place] [address] 12/16/2023 Tanvir Mcdermott [facility] [address] [place] [address] 12/17/2023 Tanvir Mcdermott [facility] [address] [place] [address] 01/06/2024 Tanvir Mcdermott [facility] [address] [place] [address] 01/07/2024 Tanvir Mcdermott [facility] [address] [place] [address] 01/20/2024 Tanvir Mcdermott [facility] [address] [place] [address] 01/21/2024 Tanvir Mcdermott [facility] [address] [place] [address] 01/28/2024 Tanvir Mcdermott [facility] [address] [place] [address] 02/02/2024 Tanvir Mcdermott [facility] [address] [place] [address] 02/03/2024 Tanvir Mcdermott [facility] [address] [place] [address] 02/24/2024 Tanvir Mcdermott [facility] [address] [place] [address] 05/04/2024 Tanvir Mcdermott [facility] 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 I started her on acetazolamide but plan to keep the dose low, with only 250 mg in the morning and 500 mg at bedtime. This is a therapeutic trial. Bohemia is used for some types of unusual headaches. I don't think we are ready for lithium yet. We have not explored the possibility of elevated CSF pressure being caused by an inflammatory response in the spinal fluid. Patient has never been treated with acetazolamide to lower CSF pressure. Patient reminds me that she had kidney stones 20 years ago. 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 If her headaches worsen when she is off valacyclovir, I will take that as a sign that it is at least partially effective, and will resume treatment at 3 g per day. EMR gave me a warning of an overlap with Hair, Skin and Nails and Bactrim, to which she is allergic. I asked her to discontinue that product to see if her alopecia clears up. To the best jessy my knowledge, this strange pattern of headaches alternating with no headaches has not been described in the literature except in cases of recurrent benign meningitis of Mollaret. It is possible that valacyclovir terminated the last bout at 3 g per day, but 2 g per day was insufficient to prevent the recurrence. 12/31/2023 Myalgia of auxiliary muscles, head and neck (ICD-10 - M79.12) To the best jessy my knowledge, this strange pattern of headaches alternating with no headaches has not been described in the literature except in cases of recurrent benign meningitis of Eun. It is possible that valacyclovir terminated the last bout at 3 g per day, but 2 g per day was insufficient to prevent the recurrence. 01/06/2024 Benign recurrent meningitis [Molljude] (ICD-10 - G03.2) I asked the patient to discontinue acetazolamide and go back on valacyclovir 3 g per day to see what happens. If her headaches get better, continue valacyclovir 3 g per day. If there is no effect of the medication, then we will have to set up lumbar puncture which should be done at the peak of her headache, in the afternoon. It would be imperative to measure the opening and closing pressures, protein and glucose and cell count in tubes one and 4, but also for cytology in tube #2 to look for the large pale epithelial-like cells seen and described by Eun which would be diagnostic for recurrent meningitis. I would also like to get serology for HSV and possibly varicella-zoster virus in tube 3. Because of these requirements, I feel the lumbar puncture needs to be performed in the hospital where pathology services are available Several items for her recent history suggests the possibility of a CSF leak, such as improvement with overnight sleep and worsening with arising and activity, as well as low back pain. However the cyclic nature of these headaches commencing at age 10 points to a recurrent type of meningitis, in my opinion. She never had a lumbar puncture prior to the onset of these headaches. 01/06/2024 Other Resume valacyclovir1 gm tid. If no benefit in 2 weeks, call me and do an LP. Several items for her recent history suggests the possibility of a CSF leak, such as improvement with overnight sleep and worsening with arising and activity, as well as low back pain. However the cyclic nature of these headaches commencing at age 10 points to a recurrent type of meningitis, in my opinion. She never had a lumbar puncture prior to the onset of these headaches. Plan Of Treatment No Information Insurance Providers Payer Name Payer Address Payer Phone Subscriber Number Group Number Insured Name Patient Relationship to Insured Coverage Start Date Coverage End Date [facility] [address] [id number] [id number] Gosia Bee Self - patient is the insured Medical (General) History Medical History History ICD Code abdominal cramps IBS-d Surgical History Surgery Date(Month/Year) Right knee lateral tendon release 1999 Left knee ditto 2000 Right wrist arthroscopy 2002 2012 2016
--- OUTSIDE RECORDS SUMMARY | 2024-11-04 14:06 | XMS_ITS | Data Portability ---
Author Organization [facility] [address] Address [address] [place] [address] Assessment No assessment recorded. Plan of Treatment Reminders Order Date Submit Date Provider Last Modified By Organization Details Last Modified Time Details Appointments None record ed. Lab None record ed. Referral None record ed. Procedures None record ed. Surgeries None record ed. Imaging None record ed. Medication Orders None record ed. Patient TargetsNo targets recorded. Patient InstructionsNo instructions recorded. Reason for Referral None Reported. Medical Equipment None Reported. Vitals None Recorded Social History None recorded. Functional Status None recorded. Mental Status None recorded. Family History Nothing Reported. Medical History No medical history recorded. Gynecological HistoryNo gynecological history recorded. Obstetrics History GPAL:G 0 P 0 0 0 0 Past Encounters Encounter ID Performer Location Encounter Start Date Encounter Closed Date Diagnosis/Indication Diagnosis SNOMED-CT Code Diagnosis ICD10 Code Diagnosis Note [id number] [address] [place] [address] 10/29/2017 13:00:43 10/29/2017 14:38:12 Health Concerns Section Related Observation LastModified by Organization Detai ls LastModified Time None Recorded Concern Status LastModified by Organization Details LastModified Time None Recorded Advance Directives Directive None Recorded Payers Encounter Date Sequence Insurance Name Policy Number Policy Moralez Covered Member ID Moralez Member ID Guarantor Name 10/29/2017 1 [facility] Gosia Bee [id number] Gosia Bee OBGyn Episode No OBEpisode recorded.
--- OUTSIDE RECORDS SUMMARY | 2024-11-04 14:06 | XMS_ITS | Clinical Summary ---
Author Organization [facility] Address [address] [place] [address] Care Team Providers Care Drafter Tool Design Name Role Phone Pcp, No MD Primary Care Provider Unavailabl e Allergies Active Allergy Reactions Criticality Noted Date Comments Sulfa (Sulfonamide Antibiotics) 10/2021 Sulfamethoxazole-Trimethoprim Rash Low 2021 Medications sertraline (ZOLOFT) 100 mg tablet sertraline 100 mg tablet TAKE 1 TABLET BY MOUTH DAILY Active loratadine (CLARITIN) 10 mg tablet Claritin Active norethindrone-e .estradioL-iron ( FE 09/19) 1 mg-20 mcg (21)/75 mg (7) per tablet Januaryl FE 09/19 () 1 mg-20 mcg (21)/75 mg (7) tablet TAKE 1 TABLET BY MOUTH EVERY DAY Active calcium carbonate-vitam in D3 (Calcium 500 + D) 500 mg-5 mcg (200 unit) per tablet Take 1 tablet by mouth. Active multivitamin capsule Take 1 capsule by mouth in the morning. Active Social History Tobacco Use Types Packs/Day Years Used Date Smoking Tobacco: Former Smokeless Tobacco: Never Alcohol Use Standard Drinks/Week Comments Not Currently 0 (1 standard drink = 0.6 oz pur e alcohol) Comments Unknown Sex and Gender Information Value Date Recorded Sex Assigned at Not on file Legal Sex Female 9:15 AM EDT Gender Identity Not on file Sexual Orientation Not on file Last Filed Vital Signs Vital Sign Reading Time Taken Comments Blood Pressure 109/77 03/01/2022 10:59 AM EDT Pulse 77 03/01/2022 10:59 AM EDT Temperature 36.8 ??C (98.3 ??F) 03/01/2022 10:59 AM E DT Respiratory Rate - - Oxygen Saturation 98% 03/01/2022 10:59 AM EDT Inhaled Oxygen Concentration - - Weight 97.5 kg (215 lb) 03/01/2022 10:59 AM EDT Height 160 cm (5' 3 ) 03/01/2022 10:59 AM EDT Body Mass Index 38.09 03/01/2022 10:59 AM EDT Plan of Treatment Health Maintenance Due Date Last Done Comments Breast Cancer Screening 1983 HIV Screening 1983 Hepatitis C Screening 2001 Hepatitis B Vaccines (1 of 3 - 19+ 3-dose series) 2002 Pap Smear 2004 Cervical Cancer Screening 2013 HPV/Cotest 2013 COVID-19 Vaccine (4 - season) 2024 08/26/2021, 01/11/2021, 12/14/2020 Influenza Vaccine (#1) 2024 , 07/07/2018, 05/09/2016, Additional history exists DTaP,Tdap,and Td Vaccines (4 - Td or Tdap) 08/18/2026 08/18/2016, 12/11/2012, 04/05/2008 Zoster Vaccines (1 of 2) 2033 HPV Vaccines Aged Out No longer eligi ble based on patient's age to complete this topic Hepatitis A Vaccines Aged Out No long er eligible based on patient's age to complete this topic MMR Vaccines Aged Out No longer eligi ble based on patient's age to complete this topic Meningococcal Vaccine Aged Out No sravan abe eligible based on patient's age to complete this topic Pneumococcal Vaccine: Pediatrics (0 to 5 Years) and At-Risk Patients (6 to 64 Years) Aged Out No longer eligible based on patient's age to complete this topic Insurance [facility] Care Teams Drafter Tool Design Relationship Specialty Start Date End Date Justine Alicea MD [address] [place] [id number] PCP - General Internal Medicine 03/01/22
--- OUTSIDE RECORDS SUMMARY | 2024-11-04 14:06 | XMS_ITS ---
Author Name [facility] Organization Unknown History of Medication Use Medication Directions Dispensed Refills Start Date End Date Stat us sertraline (ZOLOFT) 100 mg tablet sertraline 100 mg tablet TAKE 1 TABLET BY MOUTH DAILY active calcium carbonate-vitamin D3 (Calcium 500 + D) 500 mg-5 mcg (200 unit) per tablet Take 1 tablet by mouth. active multivitamin capsule Take 1 capsule by mouth in the morning. active Problems Problem Status Onset Date Problem Type Date of Resoluti on Source Bronchitis active EncounterDiagnosisAct CTUCHS
--- OUTSIDE RECORDS SUMMARY | 2024-11-04 14:06 | XMS_ITS ---
Author Organization [facility] Address [address] [place] [address] Care Team Providers Care Elastic Assembler Name Role Phone Ashok Perrin Primary Care Provider Tanvir Zepeda Unavailable [phone] Medications Medication SIG (Take, Route, Fr equency, Duration) Notes Start Date End Date Status Qulipta 60 MG 1 tablet Orally Once a day for 30 days 04/12/2024 11/14/2024 Active Encounters Encounter Location Date Provider Diagnosis [facility] [address] [place] [address] 05/18/2024 Tanvir Mcdermott Plan Of Treatment Medication Medication Name Sig Start Date Stop Date Notes Qulipta 60 MG 1 tablet Orally Once a day for 30 days 04/1211/14/2024 Progress Notes * Gosia BEEDOB: 3 (39 yo F)Acc No.[id number]:05/18/2024 Patient:?Gosia BEE :1985???Age:39 Y???Sex:Female Address:[address] [place] [address] * Refills? Refill Qulipta Tablet, 60 MG, Orally, 30, 1 tablet, Once a day, 30 days, Refills=5 * true * Date:? Generated for Chio reis/Loren/eTransmitting on:?11/04/2024 02:06 PM EST
== END 2024-11-04 12:47 | disposition home or self-care (01) ==
PROVIDERS: PCP Internal Medicine; Referring Provider Internal Medicine; Visit Provider Internal Medicine
DX: G43.909 Migraine, unspecified, not intractable, without status migrainosus (principal); M54.81 Occipital neuralgia
CPT/HCPCS: 99204

== ENCOUNTER 2024-12-16 13:00 | Outpatient (AMB) | payer OTHER, SELFPAY ==
--- NOTE | 2024-12-16 13:26 | A.OFFVIS_ITS ---
Intake Visit Reasons: Denial Discussion Allergies sulfamethoxazole [From Bactrim] Allergy (Verified 11/04/24 12:31) Rash trimethoprim [From Bactrim] Allergy (Verified 11/04/24 12:31) Rash HPI HPI Denial Discussion: Details: History of Present Illness The patient is a 39-year-old female presenting with chronic migraine. She reports headaches occurring for approximately 30 days each month over the last three months, fitting the characteristics of migraines. These headaches are described as either unilateral or bilateral, with a throbbing quality that becomes severe during episodes. Additional symptoms of her migraines include photophobia, phonophobia and olfactory sensitivity, occasional nausea and vomiting; however, she denies the presence of aura. The patient's history includes extensive trials of triptan medications, all of which have been ineffective in providing relief. This inefficacy has led to frustrations regarding her treatment plan, particularly concerning potential use of Botox, which she mentions as an alternative that has yet to be explored. The discussion hints at a secondary consideration of occipital neuralgia co-existing or contributing to her headache symptoms due to overlapping features. Pain Description - Onset and Timing: Occurs at least 30 days per month over the past three months - Quality and Character: Throbbing, pulsating headache - Primary Location: Can be unilateral or bilateral - Exacerbating Factors: Noise (phonophobia), scents - Relieving Factors: None effectively identified with previous treatments - Impact: Significant interference with daily activities and persists despite treatment efforts Pain Management - Affect: Chronic pain significantly impacting daily living, persistent fatigue - Analgesia: Multiple triptans tried without success, seeking alternative such as Botox - Adverse Effects: None explicitly reported from medications - Activities of Daily Living: Severely affected due to frequent migraines - Aberrant Drug Related Behaviors: None reported Telehealth Telehealth Telehealth Platform: [employer] Odor Resistant Bedding Location of provider rendering services: practice address Location of patient: address on file Patient Identification confirmed using: Name, : Yes Telehealth method: video Patient verbally consented to treatment: Yes Patient verbally consented to billing insurance company: Yes Patient informed of any privacy concerns related to visit: Yes Minutes spent on Phone/Video with Pt.: 8 Assessment & Plan Assessment & Plan (1) Migraine headache: Code(s): G43.909 - Migraine, unspecified, not intractable, without status migrainosus Category: Medical (2) Occipital neuralgia: Code(s): M54.81 - Occipital neuralgia Category: Medical Plan Plan - Resubmit insurance request for Botox as an alternative treatment for headaches with migrain features. - I am considering the interaction between migraine and potential occipital neuralgia, noting their overlapping nature. - I have discussed with the patient the current strategy and potential next steps if further action is required. Patient was informed and verbally consented to the use of an ambient scribe for clinic note documentation during this visit. Discussion Notes I have discussed with the patient the characteristic features of her migraine headaches, noting their compliance with common migraine diagnostic criteria. Given her extensive experience with triptans and their lack of efficacy, we focused on the possibility of integrating Botox treatment as an alternative to relieve her symptoms. I reassured her of the documentation process to support this approach and explained the benefits versus the limited therapeutic success of other treatments. We also touched on the potential role of occipital neuralgia in her pain profile. I confirmed that further evaluation would be necessary if this revised plan proves unsuccessful, noting the importance of de tailed follow-ups and responsiveness to treatment. Patient Instructions - Expect a request submission detailing migraine symptoms for insurance purposes. - Be cautious of exacerbating factors, such as exposure to sound or scents. - Record the frequency and severity of headaches for follow-up evaluations. - Follow up as discussed for further assessment and treatments. - Return if symptoms significantly worsen or new symptoms arise. Coding Level of Care Code Tele Est Pt Level 3 (91837) Diagnoses Migraine headache G43.909 Occipital neuralgia M54.81
--- OUTSIDE RECORDS SUMMARY | 2024-12-16 13:32 | XMS_ITS | Data Portability ---
Author Organization [facility] [address] Address [address] [place] [address] Assessment No assessment recorded. Plan of Treatment [...] SNOMED-CT Code Diagnosis ICD10 Code Diagnosis Note [id number] [address] [place] [address] 10/29/2017 13:00:43 10/29/2017 14:38:12 Health Concerns Section Related Observation LastModified by Organization Detai ls LastModified Time None Recorded Concern Status LastModified by Organization Details LastModified Time None Recorded Advance Directives Directive None Recorded Payers Encounter Date Sequence Insurance Name Policy Number Policy Moralez Covered Member ID Moralez Member ID Guarantor Name 10/29/[address] [facility] Gosia Bee [id number] Gosia Bee OBGyn Episode No OBEpisode recorded.
--- OUTSIDE RECORDS SUMMARY | 2024-12-16 13:32 | XMS_ITS ---
Author Organization [facility] Address [address] [place] [address] Care Team Providers Care Hospice Patient Care Secretary Name Role Phone Ashok Perrin Primary Care Provider Unav ailable Tanvir Mcdermott Unavailable [phone] REASON FOR VISIT Qulipta Denial Encounters Encounter Location Date Provider Diagnosis [facility] [address] [place] [address] 05/04/2024 Tanvir Mcdermott Plan Of Treatment No Information Progress Notes * Gladis BEEjorgeDOB: 3 (39 yo F)Acc No.[id number]:05/04/2024 Patient:?Gosia BEE :1985???Age:39 Y???Sex:Female Address: [place] [address] * true * Date:? Generated for Printi smiley/Jyotig/eTransmitting on:?12/16/2024 01:32 PM EDT
--- OUTSIDE RECORDS SUMMARY | 2024-12-16 13:32 | XMS_ITS | Clinical Summary ---
Author Organization [address] Address [address] [place], [place] [address], [place] [address] Phone Care Team Providers Care Casting Associate Name Role Phone Fany Covington MD Primary Care Provider [phone] Allergies Active Allergy Reactions Criticality Noted Date [...] 12/08/2011 Overview (06/14/2024): 11/27/11, sees Dr Morrison, [facility] telephonic case manager HPV positive 2017 Nephrolithiasis 08/03/2008 Raynaud disease 04/05/2008 Overview (06/14/2024): Toes Depression 04/05/2008 Overview (06/14/2024): Sees psychiatrist Allergic rhinitis 04/05/2008 Immunizations Name Administration Dates Next Due Influenza [...] DX 12/08/2011 LSIL , sees Dr Morrison, [facility] telephonic case manager Nephrolithiasis 08/03/2008 DX:Nephrolithias is IBS (irritable bowel [...] age to complete this topic Meningococcal B Vaccine Aged Out No l onger eligible based on patient's age to complete [...] Mammogram Negative Anatomical Region Laterality Modality Other [facility] Provider MD HEALTH MAINTENANCE Final Result * Pap Smear (02/27/2023) Pap smear Negative [facility] Provider HEALTH MAINTENANCE Final Result * Lipid panel (01/29/2022) LDL/HDL Ratio 4 Triglycerides 142 mg/dL Cholesterol 181 mg/dL HDL 45 mg/dL LDL Cholesterol 108 mg/dL Blood Venous blood specimen / Unknown [facility] Provider LAB BLOOD ORDERABLES Caitie l Result from Last 3 Months or Most Recently Relevant to Health Maintenance [place] [address] [facility] [address] [place] [address] Care Teams Casting Associate Relationship Specialty Start Date End Date Fany Covington MD [address] [place] [address] PCP - General Internal Medicine 05/02/21
--- OUTSIDE RECORDS SUMMARY | 2024-12-16 13:32 | XMS_ITS ---
Author Organization [facility] Address [address] [place] [address] Care Team Providers Care Integrated Pest Management Technician Name Role Phone Ashok Perrin Primary Care Provider Tanvir Zepeda Unavailable [phone] REASON FOR VISIT NO CONTACT WITH PATIENT [...] 10 MG Oral for 10 Days Not-Taking Acvnuvhccy-NVMT-Bqulfckx 50-325-40 MG Oral for 5 Days Not-Taking [...] Location Date Provider Diagnosis [facility], [address] [place] [address] 08/03/2024 Tanvir Mcdermott Plan Of Treatment No Information Progress Notes * Gosia BEEDOB: 3 (39 yo F)Acc No.[id number]:08/03/2024 Patient:?Gosia BEE Provider:?Tanvir Mcdermott MD :1985???Age:39 Y???Sex:Female D ate:08/03/2024 Address:[address] [place] [phone] Pcp:Ashok Perrin Subjective: * Chief Complaints: * [...] predniSONE 10 MG Tablet Oral , Not-Taking Douqckmhrj-VXAU-Knfjhcst 50-325-40 MG Tablet Oral , Not-Taking Propranolol [...] * Electronic [place], [id number] on 12/16/2024 at 01:32 PM EDT Sign off status: Pending * Provider:?Tanvir Mcdermott MD Date:?11/2023 Generated for Chio reis/Loren/Delonitting on:?12/16/2024 01:32 PM EDT
--- OUTSIDE RECORDS SUMMARY | 2024-12-16 13:32 | XMS_ITS | Clinical Summary ---
Author Organization [facility] Address [address] [place] [address] Care Team Providers Care Electronic Technician Name Role Phone Pcp, No MD Primary [...] Cancer Screening 1983 HIV Screening 1983 Hepatitis B Vaccines (1 of 3 - 19+ 3-dose series) 2002 Pap Smear 2004 Cervical Cancer Screening 2013 HPV/Cotest 2013 COVID-19 Vaccine ( - season) 2024 08/26/2021, 01/11/2021, 12/14/2020 Influenza Vaccine (Season Ended) 2025 06/26/2020, 07/07/2018, 05/09/2016, Additional history exists DTaP,Tdap,and Td [...] 5 Years) and At-Risk Patients (6 to 49 Years) Aged Out No longer eligible based on patient's age to complete this topic Insurance [facility] Care Teams Electronic Technician Relationship Specialty Start Date End Date Justine Alicea MD [address] [place], [place] [phone] PCP - General Internal Medicine 03/01/22
--- OUTSIDE RECORDS SUMMARY | 2024-12-16 13:32 | XMS_ITS | Clinical Summary ---
Author Organization [facility] Address [address] [place] [address] Care Team Providers Care Fire Engine Operator Name Role Phone Fany Covington MD Primary Care Provider [phone] Allergies Active Allergy Reactions Criticality Noted Date [...] age to complete this topic Care Teams Fire Engine Operator Relationship Specialty Start Date End Date Fany Covington MD PCP - General Internal Medicine 12/16/22
--- OUTSIDE RECORDS SUMMARY | 2024-12-16 13:33 | XMS_ITS | Patient Health Record ---
Author Organization [facility] Address [address] [place] [address] Care Team Providers Care Chief Projectionist Name Role Phone Ashok Perrin Primary Care Provider Tanvir Zepeda Unavailable [phone] Allergies Allergen (clinical drug ingredient) Drug/Non Drug Allergy documented on EMR Reaction Allergy Type Onset Date Status sulfamethoxazole / trimethoprim Bactrim rash Drug Allergy Active Reason For Referral No Information Medications Medication SIG (Take, Route, Frequency, Duration) Notes Start Date End Date Status predniSONE 10 MG Oral for 10 Days Not-Taking Ebnnvuxkxy-GGCE-Grkxssxg 50-325-40 MG Oral for 5 Days Not-Taking [...] for pain. 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 Level of education: finished college Tobacco Use/Smoking Question Answer Notes Tobacco use: nonsmoker Problems Problem Type SNOMED Code ICD Code Onset Dates Problem Status W/U Status Risk Notes Problem Chronic intractable migraine without aura ([id number] ) Chronic migraine without aura, intractable, with status migrainosus (G43.711) Active confirmed Vital Signs Heart Rate 100 /min 04/12/2024 Blood pressure diastolic 88 mm Hg 04/12/2024 Weight-kg 98.84 kg 04/12/2024 Height 63 in 04/12/2024 Blood pressure systolic 127 mm Hg 04/12/2024 Weight 217.9 lbs 04/12/2024 BMI 38.6 kg/m2 04/12/2024 Encounters Encounter Location Date Provider Diagnosis [facility], [address] [place] [address] 04/12/2024 Tanvir Mcdermott Chronic migraine wit hout aura, intractable, with status migrainosus G43.711 [facility] [address] [place] [address] 08/03/2024 Tanvir Mcdermott [facility] [address] [place] [phone] 12/31/2023 Tanvir Mcdermott 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 [address] [place] [address] 12/30/2023 [facility] [employer] [address] [place] [address] 12/30/2023 Tanvir Sharron [employer] [address] [place] [phone] 01/26/2024 [facility] [employer] [address] [place] [address] 02/10/2024 Tanvir Sharron [facility] [address] [place] [phone] 03/07/2024 [facility] [employer] [address] [place] [phone] 12/17/2023 [facility] [address] [place] [phone] 01/06/2024 Tanvir Mcdermott [employer] [employer] [address] [place] [phone] 01/07/2024 Tanvir Mcdermott [facility] [address] [place] [phone] 01/20/2024 [facility] [employer] [address] [place] [phone] 01/21/2024 [facility] [address] [place] [phone] 01/28/2024 [facility] [address] [place] [phone] 02/02/2024 [facility] [employer] [address] [place] [phone] 02/03/2024 [facility] [address] [place] [phone] 02/24/2024 [employer] [address] [place] [phone] 05/04/2024 [facility] [employer] [address] [place] [phone] 05/18/2024 Tanvir Mcdermott Assessments Encounter Date Diagnosis (ICD Code) Assessment Notes Treatment Notes Treatment Clinical Notes Section Notes 04/12/2024 Chronic migraine without aura, intractable, with status migrainosus (ICD-10 - G43.711) 12/31/2023 Benign recurrent meningitis [Mollaret] (ICD-10 - [...] prevent the recurrence. 01/06/2024 Benign recurrent meningitis [Mollaret] (ICD-10 - G03.2) I asked the patient [...] Insured Coverage Start Date Coverage End Date [facility] [address] [facility] [address] [place] [id number] Gosia Bee Self - patient is the insured Medical (General) History Medical History History ICD Code abdominal cramps IBS-d Surgical History Surgery Date(Month/Year) Right knee lateral tendon release 1999 Left knee ditto 2000 Right wrist arthroscopy 2002 2012 2016
--- OUTSIDE RECORDS SUMMARY | 2024-12-16 13:33 | XMS_ITS ---
Author Organization [facility] Address [address] [place] [address] Care Team Providers Care Solution Design And Analysis Manager Name Role Phone Ashok Perrin Primary Care Provider Tanvir Zepeda Unavailable [phone] Medications Medication SIG (Take, Route, Fr equency, Duration) Notes Start Date End Date Status Qulipta 60 MG 1 tablet Orally Once a day for 30 days 04/12/2024 11/14/2024 Active Encounters Encounter Location Date Provider Diagnosis [facility] [address] [place] [address] 05/18/2024 Tanvir Mcdermott Plan Of Treatment Medication Medication Name Sig Start Date Stop Date Notes Qulipta 60 MG 1 tablet Orally Once a day for 30 days 04/1211/14/2024 Progress Notes * Gosia BEEDOB: 3 (39 yo F)Acc No.[id number]:05/18/2024 Patient:?Gosia BEE :1985???Age:39 Y???Sex:Female Address:[address] [place] [address] [place] [address] * Refills? Refill Qulipta Tablet, 60 MG, Orally, 30, 1 tablet, Once a day, 30 days, Refills=5 * true * Date:? Generated for Carmeli smiley/Loren/eTransmitting on:?12/16/2024 01:32 PM EDT
== END 2024-12-16 13:11 | disposition home or self-care (01) ==
PROVIDERS: PCP Internal Medicine; Visit Provider Internal Medicine
DX: G43.909 Migraine, unspecified, not intractable, without status migrainosus (principal); M54.81 Occipital neuralgia
CPT/HCPCS: 98013

== ENCOUNTER 2025-03-10 10:56 | Outpatient (AMB) | payer OTHER, SELFPAY ==
--- OUTSIDE RECORDS SUMMARY | 2024-08-03 10:30 | XMS_ITS ---
Author Organization [facility] Address [address] [place] [address] Care Team Providers Care Mica Splitter Name Role Phone Ashok Perrin Primary Care Provider Tanvir Zepeda Unavailable [phone] REASON FOR VISIT NO CONTACT WITH PATIENT BY TELEPHONE, HEALOW OR ZOOM. Medications Medication SIG (Take, Route, Frequency, Duration) Notes Start Date End Date Status Propranolol HCl 40 MG TAKE 1 TABLET BY MOUTH DAILY Oral for 30 Days Not-Taking Fluticasone Propionate 50 MCG/ACT SHAKE GENTLY AND PRIME PUMP BEFORE USE THEN ADMINISTER 2 SPRAYS INTO EACH NOSTRIL EVERY AM THEN AFTER USE CLEAN TIP AND REPLACE LID. Nasal for 30 Days Not-Taking methylPREDNISolone 4 MG FOLLOW PACKAGE DIRECTIONS Oral for 6 Days Not-Taking Gabapentin 400 MG 1 capsule Orally every 8 hours whenever needed for pain. for 30 days 04/12/2024 Active Qulipta 60 MG 1 tablet Orally Once a day for 30 days 04/12/2024 11/14/2024 Active predniSONE 10 MG Oral for 10 Days Not-Taking Hqnnjcfgnp-XQSO-Xbuxgixt 50-325-40 MG Oral for 5 Days Not-Taking Dicyclomine HCl 10 MG TAKE 1 CAPSULE BY MOUTH THREE TIMES DAILY NEEDED FOR ABDOMINAL CRAMPS OR PAIN Oral for 10 Days Active acetaZOLAMIDE 250 MG 1 tablet at night x 3 days, Oral 2 tabs at night x 3 days, then add 1 tab in morning after that. for 30 days 11/24/2023 Active Rizatriptan Benzoate 10 MG TAKE 1 TABLET BY MOUTH NEEDED FOR MIGARINE YOU CAN REPEAT AFTER 2 HOURS IF NEEDED MAX OF 2 TABLETS PER 24 HOURS Oral for 5 Days Not-Taking Fexofenadine HCl 180 MG 1 tablet Swallow whole with water; do not take with fruit juices. Orally Once a day 09/07/2023 Active Ibuprofen 200 MG 4 tabs prn Orally Three times a day uses 20 tabs/week 06/09/2023 Active Vitamin D 50 MCG (1999) 1 tablet Oral ly Once a day 06/09/2023 Active 1.5-30 MG-MCG TAKE 1 TABLET BY MOUTH EVERY DAY Oral for 84 Days Active Sertraline HCl 100 MG Oral for 90 Days Active Encounters Encounter Location Date Provider Diagnosis [facility] [address] [place] [address] 08/03/2024 Tanvir Mcdermott Plan Of Treatment No Information Progress Notes * Gosia BEEDOB: [birth year] (39 yo F)Acc No.[id number]:08/03/2024 Patient: Gosia VIRK Provider: Kandice Mcdermott MD :1985 A ge:39 Y S ex:Female Date:08/03/2024 Address:[address] [place] [phone] Pcp:Ashok Perrin Subjective: * Chief Complaints: * [...] Orally Once a day , Taking FE 1.5-30 MG-MCG Tablet TAKE 1 TABLET [...] predniSONE 10 MG Tablet Oral , Not-Taking Brfavaecfh-GTHZ-Oblemhoz 50-325-40 MG Tablet Oral , Not-Taking Propranolol [...] * Procedure Codes: * Electronic [place], [id number] on 03/10/2025 at 11:33 AM EDT Sign off status: Pending * Provider: Kandice Mcdermott MD Date: 1 10/04/2023 Generated for Chio reis/Loren/Rita on: 0 03/10/2025 11:33 AM EDT
[2025-03-10 11:12] VITALS: BP 129/74; PULSE 100; RESP 16; O2SAT 98; BMI 38.6
--- NOTE | 2025-03-10 11:12 | MHC.OFFVIS ---
Vital Signs 03/10/25 11:12 Height 5 ft 3 in Weight 218 lb BMI 38.6 BP 129/74 Blood Pressure Location Lt brachial Position Sitting Respiration 16 Pulse 100 Pulse Source Pulse Oximeter Pulse Oximetry (%) 98 Oxygen Delivery Method Room Air Intake Visit Reasons: Botox for migraine Clinical Nursing Assistant Required: No Manufacturing Associate: Manufacturing Associate Present Accompanied by: Brad Hawk Allergies sulfamethoxazole (From Bactrim) Allergy (Verified 03/10/25 11:14) Rash trimethoprim (From Bactrim) Allergy (Verified 03/10/25 11:14) Rash Medication List - Last Reconciled 03/10/25 by Joanne Doss LPN atomoxetine (Strattera) 36 mg PO DAILY cholecalciferol (vitamin D3) 50 mcg PO DAILY loratadine (Claritin) 10 mg PO DAILY methylphenidate HCl ER (Concerta) 18 mg PO DAILY norethindrone-e.estradiol-iron 1 mg-20 mcg (21)/75 mg (7) (Blisovi Fe / (28)) 1 tab PO DAILY sertraline 100 mg PO DAILY HPI HPI Botox for migraine: Details: History of Present Illness The patient is a 39-year-old female presenting with chronic headaches and migraine management. She experiences headaches lasting for weeks, primarily in the posterior head region, without aura, differentiating them from classic migraines. The patient has explored various treatment options due to persistent headaches, including consulting multiple doctors. Botox injections are being trialed, with an expected onset of three to four days and a duration of up to three months. A nerve stimulator is a potential alternative if Botox is ineffective, though insurance coverage poses challenges. Pain Description - Onset and Timing: Headaches last for weeks at a time. - Quality and Character: Headaches are not accompanied by aura. - Primary Location: Posterior region of the head. Physical Exam Vital Signs: Last Vital Signs Pulse 100 03/10/25 11:12 Resp 16 03/10/25 11:12 BP 129/74 03/10/25 11:12 Pulse Ox 98 03/10/25 11:12 Oxygen Delivery Method Room Air 03/10/25 11:12 BMI result Body Mass Index 38.6 Office Procedures Botulinum toxin Injection Details: Chemodenervation of Scalp and Neck for Chronic Migraine (155 units as per protocol approved by FDA) After obtaining written consent, pre-procedure blood pressure and heart rate were stable and recorded in the nursing record. The patient was placed in the sitting position. Bilaterally, 31 points along chair inspector (2 sites), procerus (1 site), frontalis (4 sites), temporalis (8 sites), occipitalis (6 sites), cervical paraspinals (4 sites), and trapezius (6 sites) were identified and prepped with alcohol. Using sterile technique, a 30 gauge 0.5 inch needle (for all sites other than trapezius) and 25 gauge 1.5 inch (for trapezius only) needle was introduced into each muscle and 5 units per site was injected. A total of 155 units were used. Aspirations were negative for blood, CSF and air prior to injection at all sites. The needle was removed, skin cleansed and a sterile bandage was applied where needed. The patient tolerated the procedure well and no complications were encountered. Following the procedure the patient's vital signs were stable. The patient was discharged home in good condition with post-procedural instructions. Time Out: Immediately prior to the procedure, the following was verbally confirmed that there is a signed consent form and that the correct patient, planned procedure, site and side are consistent with documentation and that necessary equipment and/or blood products are available prior to the start of the case. Complications: none EBL: <5 cc 87069 - Migraine Procedure code (CPT) selection complete Office Meds onabotulinumtoxinA 200 unit solution for injection Performing Provider: Noe Miguel MD Per[place] [facility] Administered by: Noe Miguel MD on 03/10/25 11:30 Dose Route Admin Location Dispensed Lot Number Expiration Date [facility] [employer]orer 200 unit IM 155 ea [id number] 05/31/27 Total Dispensed Waste 155 ea 0 % Assessment & Plan Assessment & Plan (1) Migraine headache: Code(s): G43.909 - Migraine, unspecified, not intractable, without status migrainosus Category: Medical Plan Plan - S/p Botox injections for headache management, with expected onset in three to four days and duration of up to three months. - Explore nerve stimulator as an alternative if Botox is ineffective, contingent on insurance coverage. Patient was informed and verbally consented to the use of an ambient scribe for clinic note documentation during this visit. Discussion Notes I discussed with the patient the use of Botox for managing her chronic headaches, explaining that it typically takes three to four days to take effect and can last up to three months. We also talked about the possibility of using a nerve stimulator if Botox does not provide sufficient relief, noting that insurance coverage would be a factor in this decision. Patient Instructions - Schedule a follow-up appointment in three months to repeat Botox treatment. - Avoid rubbing the areas where Botox was injected. Orders: Orders AMB Botulinum toxin Injection Today G43.909 - Migraine, unspecified, not intractable, without status migrainosus Coding Level of Care Code Procedure Only Diagnoses Migraine headache G43.909 CPT Codes Botox Injection - Botox 3: 33337 - Migraine ([id number])
--- OUTSIDE RECORDS SUMMARY | 2025-03-10 11:33 | XMS_ITS | Data Portability ---
Author Organization [facility], [address] Address [address] [place] [address] Assessment No assessment recorded. Plan of Treatment [...] SNOMED-CT Code Diagnosis ICD10 Code Diagnosis Note [id number] _[facility] [address] [place] [address] 10/29/2017 13:00:43 10/29/2017 14:38:12 Health Concerns Section Related Observation LastModified by Organization Detai ls LastModified Time None Recorded Concern Status LastModified by Organization Details LastModified Time None Recorded Advance Directives Directive None Recorded Payers Insurance Date Sequence Insurance Name Policy Number Policy Moralez Covered Member ID Moralez Member ID Guarantor Name 10/29/2024 1 [facility] [id number] Gosia Bee [id number] Gosia Bee 10/29/2024 1 [facility] Gosia Bee [id number] Gosia Bee OBGyn Episode No OBEpisode recorded.
--- OUTSIDE RECORDS SUMMARY | 2025-03-10 11:33 | XMS_ITS | Clinical Summary ---
Author Organization [address] Address [address] [place], [place] [address], [place] [address] Phone Care Team Providers Care Professor Of Sociology Name Role Phone Fany Covington MD Primary Care Provider [phone] Allergies Active Allergy Reactions Criticality Noted Date [...] day. Do not crush, chew, or split. 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 Nephrolithiasis 08/03/2008 DX:Nephrolithias is IBS (irritable bowel [...] 98 09/05/2024 11:19 AM EST Temperature 36.9 C (98.4 F) 09/05/2024 11:19 AM EST Respiratory Rate 16 09/05/2024 11:1 [...] Vaccine ( season) 2024 08/26/2021, 01/11/2021, 12/14/2020 Influenza Vaccine (#1) 2025 , 08/26/2021, 06/26/2020, Additional history exists Breast Cancer Screening 06/12/2025 06/12/2023 Cervical Cancer Screening: Pap Smear 02/27/2026 02/27/2023 DTaP,Tdap,and Td Vaccines (4 - Td or Tdap) 08/18/2026 08/18/2016, 12/11/2012, 04/05/2008 Cholesterol Screening (Lipid Panel) 01/29/2027 01/29/2022 HIB Vaccines Aged Out No longer eligi [...] Mammogram Negative Anatomical Region Laterality Modality Other [facility] Provider HEALTH MAINTENANCE Final Result * Pap Smear (02/27/2023) Pap smear Negative [facility] Provider HEALTH MAINTENANCE Final Result * Lipid panel (01/29/2022) LDL/HDL Ratio 4 Triglycerides 142 mg/dL Cholesterol 181 mg/dL HDL 45 mg/dL LDL Cholesterol 108 mg/dL Blood Venous blood specimen / Unknown [facility] Provider LAB BLOOD ORDERABLES Caitie l Result from Last 3 Months or Most Recently Relevant to Health [place] [id number] [facility] [address] [place] [address] Care Teams Professor Of Sociology Relationship Specialty Start Date End Date Fany Covington MD [address] [place] [address] PCP - General Internal Medicine 05/02/21
--- OUTSIDE RECORDS SUMMARY | 2025-03-10 11:34 | XMS_ITS ---
Author Name [facility] Organization Unknown History of Medication Use Medication Directions Dispensed Refills Start Date End Date Stat us calcium carbonate-vitamin D3 (Calcium 500 + D) 500 mg-5 mcg (200 unit) per tablet Take 1 tablet by mouth. active multivitamin capsule Take 1 capsule by mouth in the morning. active sertraline (ZOLOFT) 100 mg tablet sertraline 100 mg tablet TAKE 1 TABLET BY MOUTH DAILY active Allergies Allergen Reaction Severity Comment Documented Date Source Statu s SULFAMETHOXAZOLE-TRIMETHOPRIM RASH Mild 03/01/2022 [facility] active SULFA (SULFONAMIDE ANTIBIOTICS) 09/01/2021 [facility] active Problems Problem Status Onset Date Problem Type Date of Resoluti on Source Bronchitis active EncounterDiagnosisAct [facility] Encounters Encounter Type Encounter Reason Primary Diagnosis Location Date Ambulatory Bronchitis, not specified as acute or chronic [facility] 03/01/2022 Care Team Organization Name Specialty Phone Email Start Date End Da te [facility] NO PCP Primary Care 03/01/202210/2021 [facility] PCP,No Primary Care 03/01/2022
--- OUTSIDE RECORDS SUMMARY | 2025-03-10 11:34 | XMS_ITS | Clinical Summary ---
Author Organization [facility] Address [address] [place] [address] Care Team Providers Care Underwear Trimmer Name Role Phone Fany Covington MD Primary Care Provider [phone] Allergies Active Allergy Reactions Criticality Noted Date [...] 73 07/17/2023 9:12 AM EST Temperature 36.1 C (96.9 F) 07/17/2023 9:12 AM EST Respiratory Rate 16 03/17/2023 10:16 AM EDT [...] ( season) 2024 08/26/2021 Influenza Vaccine (#1) 2025 , 06/26/2020, 07/07/2018, Additional history exists DTap / Tdap / Td (4 - Td or Tdap) 08/18/2026 08/18/2016, 12/11/2012, 04/05/2008 Pneumococcal Vaccine Aged Out No long er eligible based on patient's age to complete this topic RSV Ped < 20 months Aged Out No longe r eligible based on patient's age to complete this topic Care Teams Underwear Trimmer Relationship Specialty Start Date End Date Fany Covington MD PCP - General Internal Medicine 12/16/22
--- OUTSIDE RECORDS SUMMARY | 2025-03-10 11:34 | XMS_ITS | Clinical Summary ---
Author Organization [facility] Address [address] [place] [address] Care Team Providers Care Battery Charger Name Role Phone Pcp, No MD Primary [...] 77 03/01/2022 10:59 AM EDT Temperature 36.8 C (98.3 F) 03/01/2022 10:59 AM EDT Respiratory Rate - - Oxygen Saturation 98% [...] Screening 2013 HPV/Cotest 2013 COVID-19 Vaccine ( season) 2024 08/26/2021, 01/11/2021, 12/14/2020 Influenza Vaccine (#1) 2025 , 07/07/2018, 05/09/2016, Additional history exists DTaP,Tdap,and [...] age to complete this topic Insurance [facility] Care Teams Battery Charger Relationship Specialty Start Date End Date Justine Alicea MD [address] [place] [address] PCP - General Internal Medicine 03/01/22
== END 2025-03-10 11:32 | disposition home or self-care (01) ==
LOC: HO.PMC 10:56
PROVIDERS: PCP Internal Medicine; Visit Provider Internal Medicine
DX: G43.709 Chronic migraine without aura, not intractable, without status migrainosus (principal)
CPT/HCPCS: 64615

== ENCOUNTER → 2025-03-10 10:56 | Outpatient (BNVA) | payer OTHER, SELFPAY | PROVIDERS: PCP Internal Medicine; Visit Provider Internal Medicine | DX: G43.709 Chronic migraine without aura, not intractable, without status migrainosus (principal) | CPT/HCPCS: 64615; J0585 ==

== ENCOUNTER 2025-04-01 20:04 | Emergency (ER) | payer OTHER, SELFPAY ==
--- OUTSIDE RECORDS SUMMARY | 2024-08-03 10:30 | XMS_ITS ---
Author Organization [facility] Address [address] [place] [address] Care Team Providers Care Training Technician Name Role Phone Ashok Perrin Primary Care Provider Tanvir Zepeda Unavailable [phone] REASON FOR VISIT NO CONTACT WITH PATIENT BY TELEPHONE, HEALOW OR ZOOM. Medications Medication SIG (Take, Route, Frequency, Duration) Notes Start Date End Date Status Propranolol HCl 40 MG TAKE 1 TABLET BY MOUTH DAILY Oral; Duration: 30 Days Not-Taking Fluticasone Propionate 50 MCG/ACT SHAKE GENTLY AND PRIME PUMP BEFORE USE THEN ADMINISTER 2 SPRAYS INTO EACH NOSTRIL EVERY AM THEN AFTER USE CLEAN TIP AND REPLACE LID. Nasal; Duration: 30 Days Not-Taking methylPREDNISolone 4 MG FOLLOW PACKAGE DIRECTIONS Oral; Duration: 6 Days Not-Taking Gabapentin 400 MG 1 capsule Orally every 8 hours whenever needed for pain.; Duration: 30 days 04/12/2024 Active Qulipta 60 MG 1 tablet Orally Once a day; Duration: 30 days 04/12/2024 11/14/2024 Active predniSONE 10 MG Oral; Duration: 10 Days Not-Taking Bbzjjqdemh-NJOK-Gxxfaqod 50-325-40 MG Oral; Duration: 5 Days Not-Taking Dicyclomine HCl 10 MG TAKE 1 CAPSULE BY MOUTH THREE TIMES DAILY NEEDED FOR ABDOMINAL CRAMPS OR PAIN Oral; Duration: 10 Days Active acetaZOLAMIDE 250 MG 1 tablet at night x 3 days, Oral 2 tabs at night x 3 days, then add 1 tab in morning after that.; Duration: 30 days 11/24/2023 Active Rizatriptan Benzoate 10 MG TAKE 1 TABLET BY MOUTH NEEDED FOR MIGARINE YOU CAN REPEAT AFTER 2 HOURS IF NEEDED MAX OF 2 TABLETS PER 24 HOURS Oral; Duration: 5 Days Not-Taking Fexofenadine HCl 180 MG 1 tablet Swallow whole with water; do not take with fruit juices. Orally Once a day 09/07/2023 Active Ibuprofen 200 MG 4 tabs prn Orally Three times a day uses 20 tabs/week 06/09/2023 Active Vitamin D 50 MCG (1999) 1 tablet Oral ly Once a day 06/09/2023 Active FE .01/27 1.5-30 MG-MCG TAKE 1 TABLET BY MOUTH EVERY DAY Oral; Duration: 84 Days Active Sertraline HCl 100 MG Oral; Duration: 90 Days Active Encounters Encounter Location Date Provider Diagnosis [facility] [address] [place] [address] 08/03/2024 Tanvir Mcdermott Plan Of Treatment No Information Progress Notes * Gosia BEEDOB: [birth year] (39 yo F)Acc No.[id number]:08/03/2024 Patient: Gosia VIRK Provider: Kandice Mcdermott MD :1985 A ge:39 Y S ex:Female Date:08/03/2024 Address:[address] [place] [phone] Pcp:Ashok Perrin Subjective: * Chief Complaints: * 1 . NO CONTACT WITH PATIENT BY TELEPHONE, HEALOW OR ZOOM.. * Medical History: * Medications: T aking Fexofenadine HCl 180 MG Tablet 1 tablet Swallow whole with water; do not take with fruit juices. Orally Once a day , Taking Ibuprofen 200 MG Tablet 4 tabs prn Orally Three times a day uses 20 tabs/week, Taking Vitamin D 50 MCG (1999) Tablet 1 tablet Orally Once a day , Taking FE .01/27 1.5-30 MG-MCG Tablet TAKE 1 TABLET BY [...] 1 tab in morning after that. , Taking Gabapentin 400 MG Capsule 1 capsule Orally every 8 hours whenever needed for pain. , Taking Qulipta 60 MG Tablet 1 tablet Orally Once a day , stop date 11/14/2024, Not-Taking Rizatriptan Benzoate 10 MG Tablet TAKE 1 TABLET BY MOUTH NEEDED FOR MIGARINE YOU CAN REPEAT AFTER 2 HOURS IF NEEDED MAX OF 2 TABLETS PER 24 HOURS Oral , Not-Taking predniSONE 10 MG Tablet Oral , Not-Taking Itqertrebv-SLKK-Rnutsbyu 50-325-40 MG Tablet Oral , Not-Taking Propranolol [...] FOLLOW PACKAGE DIRECTIONS Oral Objective: * Vitals: Assessment: Plan: * Treatment: * Billing Information: * Visit Code: * Procedure Codes: * Electronic [place], [id number] on 04/01/2025 at 09:07 PM EDT Sign off status: Pending * Provider: Kandice Mcdermott MD Date: 1 10/04/2023 Generated for Chio reis/Loren/Rita on: 0 04/01/2025 09:07 PM EDT
--- NOTE | ~2025-04-01 | CT_ITS ---
CLINICAL HISTORY: L flank pain, hematuria. appearance of mild hydro CT abdomen and pelvis without contrast Comparison: None provided Findings: The superior portions of the liver and spleen are outside of the field of view. The visualized portions are unremarkable. The gallbladder, pancreas, and adrenal glands are unremarkable. There is mild to moderate left hydronephrosis. There is a 6 mm stone in the distal left ureter near the ureterovesical junction. Right kidney is unremarkable. The gastrointestinal tract is unremarkable. There are no enlarged lymph nodes. The aorta is normal in diameter. Uterus and adnexa are unremarkable. There is no fracture or suspicious lytic or sclerotic lesion. IMPRESSION: 6 mm distal left ureteral stone with [id number] hydronephrosis. This document has been electronically signed by: Yahir Lebron MD on 04/01/2025 23:01:11
--- NOTE | 2025-04-01 20:09 | ED_ITS ---
HPI - Back Pain/Injury General Chief Complaint: Abdominal Pain Stated Complaint: lower back pain,vomiting Time Seen by Provider: 04/01/25 21:01 History of Present Illness ED Provider: Yonatan Vaughn MD HPI Narrative: 39-year-old female who reports abrupt onset atraumatic left flank pain with nausea nonbloody nonbilious vomiting. No history of kidney stones denies dysuria pyuria vaginal symptoms or abdominal discomfort. Related Data Home Medications ?Medication ?Instructions ?Recorded ?Confirmed atomoxetine 18 mg capsule 36 mg PO DAILY 11/04/2402/28 (Strattera) cholecalciferol (vitamin D3) 50 50 mcg PO DAILY 03/10/25 mcg (2,000 unit) capsule loratadine 10 mg tablet (Claritin) 10 mg PO DAILY 03/2403/10/25 methylphenidate HCl 18 mg 18 mg PO DAILY 11/04/2402/28 tablet,extended release 24 hr (Concerta) norethindrone 1 mg-ethinyl 1 tab PO DAILY 11/04/2407/25 estradiol 20 mcg (21)-iron 75 mg (7) tablet (Blisovi Fe 09/19 (28)) sertraline 100 mg tablet 100 mg PO DAILY 11/04/2407/25 Previous Rx's ?Medication ?Instructions ?Recorded ondansetron 4 mg disintegrating 4 mg PO Q8H PRN nausea and 04/01/25 tablet vomiting #7 tabs oxycodone 5 mg tablet 5 mg PO Q8H PRN pain #7 tabs 04/01/25 tamsulosin 0.4 mg capsule 0.4 mg PO BEDTIME 7 days #7 caps 04/01/25 Allergies Allergy/AdvReac Type Severity Reaction Status Date / Time sulfamethoxazole (From Allergy Rash Verified 04/01/25 20:13 Bactrim) trimethoprim (From Bactrim) Allergy Rash Verified 04/01/25 20:13 [facility] Social History Social History Smoked in Last 30 Days: No Use of substances other than those prescribed or required for medical reasons: No Advance Directives: No Advance Directives Information Provided: No Do you have a plan to hurt others: No Plan Physical Exam 2 Exam: Exam: EXAM: Gen: Alert, awake, uncomfortable appearing in pain Head: Atraumatic Eyes: Anicteric, Normal conjunctiva. ENT: Moist mucosa, no pallor. ? Neck: Supple. Skin: ?No observable rash or bruising on exposed or examined skin Respiratory: Breathing comfortably, No distress.Clear to auscultation bilaterally, symmetric chest expansion, No wheeze, rales, ronchi. Cardiovascular: Regular rate and rhythm. No murmurs or rub. Well perfused periphery, warm extremities. No edema. ? Abdominal: No focal tenderness. Soft, no objective distension. No palpable masses or obvious organomegaly. ?No guarding, no rebound tenderness or other peritoneal findings. : Mild left CVA tenderness Neuro: Alert. Gross movement of all extremities intact. ? Psych: Calm. Cooperative. MSK: No grossly visible deformity. Vital signs: See flowsheet Vital Signs: Vital Signs: Last Vital Signs Temp 98.1 F 04/02/25 00:10 Pulse 72 04/02/25 00:10 Resp 16 04/02/25 00:10 BP 136/68 04/02/25 00:10 Pulse Ox 100 04/02/25 00:10 O2 Del Method Room Air 04/02/25 00:10 BMI result Body Mass Index 38.8 Course Course Course Narrative: This is an RME performed by Hilda Angel CNP: Additional HPI, ROS, PE not included below will be deferred to primary provider. Patient is a 39-year-old female who presents emergency department for evaluation of left flank, left back pain, onset 1 hour prior to. Recently experiencing urinary frequency. Arrives diaphoretic, actively vomiting, 10/10 pain. Denies history of nephrolithiasis. Plan: Serum labs, urinalysis, ondansetron Medications Administered Discontinued Medications Generic Name Dose Route Start Last Admin Trade Name Freq PRN Reason Stop Dose Admin Ketorolac Tromethamine 15 mg 04/01/25 21:28 04/01/25 21:34 Ketorolac Tromethamine 15 Mg/Ml Vial IVPUSH 04/01/25 21:29 15 mg ONCE ONE Administration Ondansetron HCl 4 mg 04/01/25 20:13 04/01/25 21:33 Ondansetron Odt 4 Mg Tab.Rapdis TRANSLINGU 04/01/25 20:14 Not Given ONCE ONE Ondansetron HCl 4 mg 04/01/25 21:28 04/01/25 21:34 Ondansetron Hcl 4 Mg/2 Ml Vial IVPUSH 04/01/25 21:29 4 mg ONCE ONE Administration Oxycodone HCl 5 mg 04/01/25 21:28 04/01/25 21:36 Oxycodone Hcl Immed Release 5 Mg Tablet PO 04/01/25 21:29 5 mg ONCE ONE Administration Tamsulosin HCl 0.4 mg 04/01/25 21:28 04/01/25 21:36 Tamsulosin Hcl 0.4 Mg Capsule PO 04/01/25 21:29 0.4 mg ONCE ONE Administration Medical Decision Making Medical Decision Making MDM Narrative: Medical Decision Makin-YEAR-OLD FEMALE WITH LESS THAN 24 HOURS OF LEFT FLANK PAIN. NO HISTORY OF UROLOGIC ISSUES OR SURGERIES. AFEBRILE NO LEUKOCYTOSIS. LEFT FLANK TENDERNESS ON EXAM. POINT OF CARE ULTRASOUND SEE REPORT ABOVE, SHOWED HYDRONEPHROSIS LEFT SIDE. NO URINALYSIS SUGGESTION OF UTI. 6 MM STONE WITH HYDRONEPHROSIS IN THE LAST CONFIRMED BY CT. PAIN WELL CONTROLLED AFTER OXYCODONE/TORADOL/TAMSULOSIN. Considered admission to the hospital however shared decision-making discussion and given the patient's improved pain we will discharge home Preliminary Favored Differential Diagnosis: KIDNEY STONE, PYELONEPHRITIS, RETROPERITONEAL HEMORRHAGE, MUSCULOSKELETAL PAIN OR STRAIN among additional considered etiologies Testing Interpreted Independently: SEE POINT OF CARE ULTRASOUND NOTE Radiology or Lab testing Results Reviewed:IMPRESSION: 6 mm distal left ureteral stone with ilqv-di-kiwfykty hydronephrosis. Consults: Not Applicable Independent Historians/External Chart Reviews: Not Applicable Social Determinants of Health Impacting MDM/Planning: Not Applicable Lab Data 04/01/25 20:21 04/01/25 20:21 Labs: Lab Results 04/01/25 Range/Units 20:21 WBC 11.6 H (4.8-10.8) X10*3/uL RBC 4.44 (4.20-5.50) X10*6/uL Hgb 13.6 (12.0-16.0) g/dl Hct 39.0 (37.0-47.0) % MCV 87.8 (80.0-98.0) fL MCH 30.6 (27.0-33.0) pg MCHC 34.9 (31.0-35.0) g/dl RDW 13.9 (11.0-16.0) % Plt Count 271 (160-400) X10*3/uL MPV 9.5 (9.4-12.3) fL Immature Gran % (Auto) 0.3 (0.0-0.4) % Neut % (Auto) 71.3 (45-73) % Lymph % (Auto) 20.1 (20-40) % [place] % (Auto) 7.3 (2-11) % Eos % (Auto) 0.7 (0-4) % Baso % (Auto) 0.3 (0-2) % Lymph # (Auto) 2.3 (1.2-4.9) X10*3/uL [place] # (Auto) 0.8 (0.1-1.2) X10*3/uL Eos # (Auto) 0.1 (0.0-0.4) X10*3/uL Baso # (Auto) 0.0 (0.0-0.2) X10*3/uL Abs Immat Gran (auto) 0.03 (0.00-0.03) X10*3/uL Absolute Neuts (auto) 8.3 (2.0-8.3) x10*3/uL Absolute Nucleated RBC 0.000 (0.0-0.012) X10*3/uL Nucleated RBC % (auto) 0.0 (0.0-0.2) /100WBC Sodium 141 (135-145) mmol/L Potassium 3.8 (3.3-5.1) mmol/L Chloride 108 (96-108) mmol/L Carbon Dioxide 21 L (22-29) mmol/L Anion Gap 16 (12-20) BUN 13 (9-16) mg/dL Creatinine 0.89 (0.5-1.4) mg/dL Estim Creat Clear Calc 93.4 Estimated GFR > 60 Random Glucose 113 (60-115) mg/dL Calcium 8.9 (8.4-10.2) mg/dL Total Bilirubin 0.3 (0.0-1.0) mg/dL AST 24 (5-31) U/L ALT 18 (0-31) U/L Alkaline Phosphatase 71 (39-117) U/L Total Protein 7.5 (6.5-8.0) g/dL Albumin 4.5 (3.5-5.0) g/dL Lipase 26 (8-78) U/L Urine Color Yellow Urine Appearance Clear Urine pH 5.5 (5.0-9.0) Ur Specific [place] 1.025 (1.005-1.025) Urine Protein Trace (Neg-Trace) mg/dL Urine Glucose (UA) Negative (Negative) mg/dL Urine Ketones Negative (Negative) mg/dL Urine Blood Large (3+) H (Negative) Urine Nitrite Negative (Negative) Ur Leukocyte Esterase Small (1+) H (Negative) Urine RBC >20 H (0-2) /HPF Urine WBC 6-10 H (0-5) /HPF Ur Squamous Epith Cells 3-5 (0-2) /HPF Urine Bacteria Trace (None Seen) Hyaline Casts 0-2 (0-2) /LPF Urine Test NEGATIVE (NEGATIVE) Procedures Procedure Narrative Procedure Narrative: EMERGENCY ULTRASOUND INTERPRETATION-Limited Retroperitoneal (Renal) [This study was ordered, performed, and interpreted by myself. The study reveals: Impression: Mild left-sided hydronephrosis] [Indication: FLANK PAIN Bladder: ANECHOIC URINE Right Kidney: NO HYDRONEPHROSIS Left Kidney: Mild left-sided hydronephrosis Performed by: Yonatan Vaughn MD Images were stored CPT: 60721] Discharge Plan Discharge Clinical Impression: Calculus, ureteral Patient Disposition: Home, Self-Care Instructions: Low Oxalate Diet (ED), How to Strain Your Urine (ED), Hydronephrosis (ED), Ureteral Stones (ED) Additional Instructions: _ DISCHARGE DIAGNOSES: KIDNEY STONE LEFT SIDE WITH MILD HYDRONEPHROSIS/BLOCKAGE ON THE LEFT KIDNEY HISTORY OF PRESENTATION: ?PAIN IN THE LEFT FLANK EMERGENCY DEPARTMENT COURSE,TESTS, TREATMENTS: While in the ED today YOU HAD A POINT OF CARE ULTRASOUND OF THE BEDSIDE THAT SHOWED MILD HYDRONEPHROSIS OR BLOCKAGE OF THE LEFT KIDNEY. AFTER THIS A CT WAS PERFORMED WHICH CONFIRMED A 6 MM STONE AT THE DISTAL END PART OF THE URETER TUBE NEAR THE BLADDER ON THE LEFT SIDE WITH SMALL AMOUNT OF BLOCKAGE IN THE LEFT KIDNEY. YOUR URINALYSIS DID NOT SUGGEST UTI. PAIN WAS CONTROLLED WITH KETOROLAC, OXYCODONE DISCHARGE MEDICATIONS: ? NEEDED OXYCODONE, TAMSULOSIN FOLLOW-UP: ?Call your primary or general physician soon as possible to discuss your symptoms, your ED visit and to discuss follow up plans CALL UROLOGY FOR FOLLOW UP INSTRUCTIONS ?& RETURN PRECAUTIONS: If any symptoms change first call your primary physician, if it is after-hours your primary doctors office should have a provider clerical production worker you can speak with. If the symptoms are severe or very concerning to you then call 911 or return to the ED. RETURN TO THE ED FOR SEVERE PAIN INABILITY URINATE HIGH FEVERS INTRACTABLE VOMITING OR OTHER SEVERE SYMPTOMS THAT WE DISCUSSED Yonatan Vaughn MD Emergency Physician [facility] Prescriptions: New ondansetron 4 mg tablet,disintegrating 4 mg PO Q8H PRN (Reason: nausea and vomiting) Qty: 7 0RF oxycodone 5 mg tablet 5 mg PO Q8H PRN (Reason: pain) Qty: 7 0RF Rx Instructions: Partial Fill upon patient request. tamsulosin 0.4 mg capsule 0.4 mg PO BEDTIME 7 Days Qty: 7 0RF No Action sertraline 100 mg tablet 100 mg PO DAILY norethindrone-e.estradiol-iron [Blisovi Fe 09/19 (28)] 1 mg-20 mcg (21)/75 mg (7) tablet 1 tab PO DAILY atomoxetine [Strattera] 18 mg capsule 36 mg PO DAILY loratadine [Claritin] 10 mg tablet 10 mg PO DAILY cholecalciferol (vitamin D3) 50 mcg (2,000 unit) capsule 50 mcg PO DAILY methylphenidate HCl [Concerta] 18 mg tablet extended release 24hr 18 mg PO DAILY Referrals: [facility] [Provider Group, Urology] Referral Note: CALL FOR NEW KIDNEY STONE WITH HYDRONEPHROSIS SEEN AND DIAGNOSED IN THE ER Interventions: ED Discharge Assessment Last Done: 04/02/25 00:10 Discharge Date/Time: 04/02/25 00:12 Print Language: Azerbaijani
[2025-04-01 20:11] VITALS: BP 145/76; PULSE 76; RESP 16; O2SAT 100; BMI 38.8
[2025-04-01 20:27] LABS: MANUAL DIFF FLAG NO
[2025-04-01 20:29] LABS: Hematocrit 39.0 % (37.0-47.0); Hemoglobin 13.6 g/dl (12.0-16.0); Imm Gran Abs Auto 0.03 X10*3/uL (0.00-0.03); Imm Gran Pct Auto 0.3 % (0.0-0.4); Lymphocytes Absolute Auto 2.3 X10*3/uL (1.2-4.9); Mean Corpuscular HGB Conc 34.9 g/dl (31.0-35.0); Mean Corpuscular Hemoglobin 30.6 pg (27.0-33.0); Mean Corpuscular Volume 87.8 fL (80.0-98.0); NRBC Abs Auto 0.000 X10*3/uL (0.0-0.012); NRBC Pct Auto 0.0 /100WBC (0.0-0.2); Platelet Count 271 X10*3/uL (160-400); Red Blood Count 4.44 X10*6/uL (4.20-5.50); White Blood Count 11.6 X10*3/uL (4.8-10.8)
[2025-04-01 20:31] LABS: Appearance Urine Clear; Glucose Urine UA Negative (Negative); PH 5.5 (5.0-9.0); Specific Gravity - Urine 1.025 (1.005-1.025); UMIC TRIGGER UACC YES
[2025-04-01 20:32] LABS: UPreg QC Valid YES
[2025-04-01 20:36] LABS: UACC Culture Trigger YES
[2025-04-01 20:42] LABS: Alanine Aminotransferase 18 U/L (0-31); Albumin Level 4.5 g/dL (3.5-5.0); Alkaline Phosphatase 71 U/L (39-117); Anion Gap 16 (12-20); Aspartate Amino Transferase 24 U/L (5-31); Blood Urea Nitrogen 13 mg/dL (9-16); Calcium 8.9 mg/dL (8.4-10.2); Carbon Dioxide 21 mmol/L (22-29); Chloride 108 mmol/L (96-108); Creatinine Clr Calc Pharmacy 93.4; Estimated Glomerular Filt Rate > 60; Lipase 26 U/L (8-78); Potassium 3.8 mmol/L (3.3-5.1); Sodium 141 mmol/L (135-145); Total Protein 7.5 g/dL (6.5-8.0)
--- OUTSIDE RECORDS SUMMARY | 2025-04-01 21:08 | XMS_ITS | Clinical Summary ---
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 Nephrolithiasis 08/03/2008 Raynaud disease [...] DX 12/08/2011 LSIL , sees Dr Morrison, [facility] irrigator valve pipe Nephrolithiasis 08/03/2008 DX:Nephrolithias is IBS (irritable bowel [...] of 3 - 19+ 3-dose series) 2002 HIV Screening 08/03/2022 Hepatitis C Screening 08/03/2022 Social Influencers of Health Screening 08/03/2022 COVID-19 Vaccine ( season) 2024 08/26/2021, 01/11/2021, 12/14/2020 Depression Screening 08/31/2024 Influenza Vaccine (#1) 2025 , 08/26/2021, 06/26/2020, [...] Mammogram Negative Anatomical Region Laterality Modality Other [facility] Provider HEALTH MAINTENANCE Final Result * Pap Smear (02/27/2023) Pap smear Negative [facility] Provider HEALTH MAINTENANCE Final Result * Lipid panel (01/29/2022) LDL/HDL Ratio 4 Triglycerides 142 mg/dL Cholesterol 181 mg/dL HDL 45 mg/dL LDL Cholesterol 108 mg/dL Blood Venous blood specimen / Unknown [facility] Provider LAB BLOOD ORDERABLES Caitie l Result from Last 3 Months or Most Recently Relevant to Health [place] [id number] [facility] [address] [place] [address] Care Teams Precision Honing Machine Operator Relationship Specialty Start Date End Date Fany Covington MD [address] [place] [address] PCP - General Internal Medicine 05/02/21
--- OUTSIDE RECORDS SUMMARY | 2025-04-01 21:08 | XMS_ITS | Clinical Summary ---
Author Organization [facility] Address [address] [place] [address] Care Team Providers Care Tier And Detonator Name Role Phone Fany Covington MD Primary Care Provider [phone] Allergies Active Allergy Reactions Criticality Noted Date [...] age to complete this topic Care Teams Tier And Detonator Relationship Specialty Start Date End Date Fany Covington MD PCP - General Internal Medicine 12/16/22
--- OUTSIDE RECORDS SUMMARY | 2025-04-01 21:08 | XMS_ITS | Clinical Summary ---
Author Organization [facility] Address [address] [place] [address] Care Team Providers Care Physical Therapy Instructor Name Role Phone Pcp, No MD Primary [...] patient's age to complete this topic Insurance [facility] Care Teams Physical Therapy Instructor Relationship Specialty Start Date End Date Justine Alicea MD [address] [place] [address] PCP - General Internal Medicine 03/01/22
[2025-04-01] MEDS: oxyCODONE HCl Immed Release 5 MG TABLET PO (21:36)
[2025-04-01 22:48] VITALS: BP 135/78; PULSE 69; RESP 16; TEMP 36.7; O2SAT 100
[2025-04-02 00:10] VITALS: BP 136/68; PULSE 72; RESP 16; TEMP 36.7; O2SAT 100
== END 2025-04-02 00:12 | disposition home or self-care (01) ==
PROVIDERS: Nurse Practitioner Family; Emergency Provider Emergency Medicine; PCP Internal Medicine
DX: N20.1 Calculus of ureter (principal); M54.50 Low back pain, unspecified; R11.2 Nausea with vomiting, unspecified; R10.2 Pelvic and perineal pain; Z79.899 Other long term (current) drug therapy
CPT/HCPCS: 36415; 74176; 76775; 80053; 81001; 81025; 83690; 85025; 87086; 96374; 96375; 99284; 99285; J1885; J2405

== ENCOUNTER → 2025-04-01 21:28 | Outpatient (BNV) | payer OTHER, SELFPAY | PROVIDERS: Emergency Provider Emergency Medicine; PCP Internal Medicine; Visit Provider Radiology Diagnostic Radiology | DX: N13.2 Hydronephrosis with renal and ureteral calculous obstruction (principal) | CPT/HCPCS: 74176 ==

== ENCOUNTER 2025-04-06 14:35 | Outpatient (AMB) | payer OTHER, SELFPAY ==
--- OUTSIDE RECORDS SUMMARY | 2024-08-03 10:30 | XMS_ITS ---
Author Organization [facility] Address [address] [place] [address] Care Team Providers Care Mechanical Test Engineer Name Role Phone Ashok Perrin Primary Care Provider Tanvir Zepeda Unavailable [phone] REASON FOR VISIT NO CONTACT WITH PATIENT [...] 10 MG Oral; Duration: 10 Days Not-Taking Hnupczrcbn-LOAQ-Mmkgjwnc 50-325-40 MG Oral; Duration: 5 Days Not-Taking [...] Active Encounters Encounter Location Date Provider Diagnosis [facility] [address] [place] [address] 08/03/2024 Tanvir Mcdermott Plan Of Treatment No Information Progress Notes * Gosia BEEDOB: [birth year] (39 yo F)Acc No.[id number]:08/03/2024 Patient: Gosia VIRK Provider: Kandice Mcdermott MD :1985 A ge:39 Y S ex:Female Date:08/03/2024 Address:[address] [place] [phone] Pcp:Ashok Perrin Subjective: * Chief Complaints: * [...] predniSONE 10 MG Tablet Oral , Not-Taking Mlnaxsizwj-GJEB-Ggcneodp 50-325-40 MG Tablet Oral , Not-Taking Propranolol [...] * Electronic [place], [id number] on 04/06/2025 at 02:37 PM EDT Sign off status: Pending * Provider: Kandice Mcdermott MD Date: 1 10/04/2023 Generated for Chio reis/Loren/Rita on: 0 04/06/2025 02:37 PM EDT
--- NOTE | 2025-04-06 14:37 | A.OFFVIS_ITS ---
Intake Visit Reasons: ureteral stone Intake Note: New Patient is present for Telehealth Urology Rx:Tamsulosin Blood Thinners:none Imaging completed: CT 04/01/2025 Earth Moving Machine Operator Required: No Accompanied by: Self / Same As Patient Allergies sulfamethoxazole (From Bactrim) Allergy (Verified 04/06/25 14:38) Rash trimethoprim (From Bactrim) Allergy (Verified 04/06/25 14:38) Rash HPI Comments Details: Gosia is a pleasant female. She is a patient of Dr. Covington. They are seen for the following urologic conditions - nephrolithiasis Telemedicine Evaluation 15 min Consultation [employer] Shanita Video Nephrolithiasis Lesser presents for - initial evaluation for nephrolithiasis, Initial presentation through emergency department last weekend Presenting symptoms included progressive left flank pain with urinary urgency and frequency Imaging - 04/24 distal left 6 mm stone with proximal hydro uretero nephrosis Laboratory investigations - 0.89 Stone composition - unknown 24 hour urine evaluation - none on file Interventions - none Current therapeutic plan - recommend ureteroscopy with laser lithotripsy Telehealth Telehealth Telehealth Platform: [employer] Location of provider rendering services: practice address Location of patient: address on file Patient Identification confirmed using: Name, : Yes Telehealth method: video Patient verbally consented to treatment: Yes Patient verbally consented to billing insurance company: Yes Patient informed of any privacy concerns related to visit: Yes Minutes spent on Phone/Video with Pt.: 15 Assessment & Plan Assessment & Plan (1) Nephrolithiasis: Code(s): N20.0 - Calculus of kidney Category: Medical Plan Ureteroscopy We discussed the nature of the decision and reasonable alternatives for performing ureteroscopy. Options such as medical therapy were discussed. Interventions include chemical dissolution, ESWL, ureteroscopy with laser lithotripsy and stent placement, PCNL. The relative uncertainties and benefits related to each alternate procedure were adequately discussed. General surgical risks including, but not limited to - pain, bleeding, infection, myocardial infarction, pulmonary embolus, deep vein thrombosis and cerebrovascular accident which may result in further hospita lization were discussed. Full disclosure of the procedure as well as all major risks, benefits and complications were discussed including but not limited to damage to the urethra, bladder and kidney infection, damage to the ureter, stent migration or malposition, scarring to the renal pelvis, remnant stone fragments, subsequent stone passage with need for secondary procedures. The overall secondary procedure rate is approximately 10-15%. The overall clearance rate is approximately 90-95%. Success of the procedure in the short-term does not necessarily guarantee that long-term success will be maintained. Suitable follow up will need to be maintained. The patient showed understanding of discussion and wishes to proceed with - cystoscopy, retrograde, ureteroscopy, possible lithotripsy/stone basketing and stent on the left side Patient Instructions: This note is constructed using voice recognition software. While every effort has been made to ensure accuracy slot floor person errors may have been included. Imaging studies, laboratory and physical exam results were discussed and reviewed in detail. No major barriers to patient understanding were identified. An opportunity to ask questions regarding the treatment plan was provided. All questions were answered. The patient expressed understanding and agreement with the above treatment plan. The patient is aware they should contact our office by phone for worsening of their current condition or the appearance of new urologic symptoms. Compliance is encouraged with any medications and followup testing that is ordered. It is a privilege to participate in the urologic care of your patient. If you have any questions or concerns regarding treatment for the above conditions, or other urologic issues, please do not hesitate to contact me. The office telephone contact is [phone]. Sincerely, Dr John Giordano MD, [facility] - Urology Compassionate Specialist Care for the Genitourinary System Coding Level of Care Code Tele New Pt Level 4 (27107) Complex EM visit Add On G2211 Diagnoses Nephrolithiasis N20.0
--- OUTSIDE RECORDS SUMMARY | 2025-04-06 14:37 | XMS_ITS | Clinical Summary ---
Author Organization [address] Address [address] [place], [place] [address], [place] [address] Phone Care Team Providers Care Bartender Name Role Phone Fany Covington MD Primary Care Provider [phone] Allergies Active Allergy Reactions Criticality Noted Date [...] 12/08/2011 Overview (06/14/2024): 11/27/11, sees Dr Morrison, [facility] rn orthopaedic HPV positive 2017 Nephrolithiasis 08/03/2008 Raynaud disease [...] DX 12/08/2011 LSIL , sees Dr Morrison, [facility] rn orthopaedic Nephrolithiasis 08/03/2008 DX:Nephrolithias is IBS (irritable bowel [...] Mammogram Negative Anatomical Region Laterality Modality Other [facility] Provider HEALTH MAINTENANCE Final Result * Pap Smear (02/27/2023) Pap smear Negative [facility] Provider HEALTH MAINTENANCE Final Result * Lipid panel (01/29/2022) LDL/HDL Ratio 4 Triglycerides 142 mg/dL Cholesterol 181 mg/dL HDL 45 mg/dL LDL Cholesterol 108 mg/dL Blood Venous blood specimen / Unknown [facility] Provider LAB BLOOD ORDERABLES Caitie l Result from Last 3 Months or Most Recently Relevant to Health [place] [id number] [facility] [address] [place] [address] Care Teams Bartender Relationship Specialty Start Date End Date Fany Covington MD [address] [place] [address] PCP - General Internal Medicine 05/02/21
--- OUTSIDE RECORDS SUMMARY | 2025-04-06 14:37 | XMS_ITS | Clinical Summary ---
Author Organization [facility] Address [address] [place] [address] Care Team Providers Care Draw Operator Name Role Phone Pcp, No MD Primary [...] patient's age to complete this topic Insurance [facility] Care Teams Draw Operator Relationship Specialty Start Date End Date Justine Alicea MD [address] [place] [address] PCP - General Internal Medicine 03/01/22
--- OUTSIDE RECORDS SUMMARY | 2025-04-06 14:37 | XMS_ITS | Clinical Summary ---
Author Organization [facility] Address [address] [place] [address] Care Team Providers Care Marking Machine Operator Name Role Phone Fany Covington MD Primary Care Provider [phone] Allergies Active Allergy Reactions Criticality Noted Date [...] age to complete this topic Care Teams Marking Machine Operator Relationship Specialty Start Date End Date Fany Covington MD PCP - General Internal Medicine 12/16/22
== END 2025-04-06 15:02 | disposition home or self-care (01) ==
LOC: HO.HUSH 14:35
PROVIDERS: PCP Internal Medicine; Visit Provider Urology
DX: N20.0 Calculus of kidney (principal)
CPT/HCPCS: 99204; G2211

== ENCOUNTER 2025-04-10 15:05 | Day surgery (SDC) | payer OTHER, SELFPAY ==
--- OUTSIDE RECORDS SUMMARY | 2024-08-03 10:30 | XMS_ITS ---
Author Organization [facility] Address [address] [place] [address] Care Team Providers Care Landscape Account Manager Name Role Phone Ashok Perrin Primary Care Provider Tanvir Zepeda Unavailable [phone] REASON FOR VISIT NO CONTACT WITH PATIENT [...] 10 MG Oral; Duration: 10 Days Not-Taking Pffkrbvnke-RTRX-Vxamrglu 50-325-40 MG Oral; Duration: 5 Days Not-Taking [...] Active Encounters Encounter Location Date Provider Diagnosis [facility] [address] [place] [address] 08/03/2024 Tanvir Mcdermott Plan Of Treatment No Information Progress Notes * Gosia BEEDOB: [birth year] (39 yo F)Acc No.[id number]:08/03/2024 Patient: Gosia VIRK Provider: Kandice Mcdermott MD :1985 A ge:39 Y S ex:Female Date:08/03/2024 Address:[address] [place] [phone] Pcp:Ashok Perrin Subjective: * Chief Complaints: * [...] predniSONE 10 MG Tablet Oral , Not-Taking Xtgselhlmx-AGRD-Wrcvzght 50-325-40 MG Tablet Oral , Not-Taking Propranolol [...] * Electronic [place], [id number] on 04/10/2025 at 03:18 PM EDT Sign off status: Pending * Provider: Kandice Mcdermott MD Date: 1 10/04/2023 Generated for Chio reis/Loren/Rita on: 0 04/10/2025 03:18 PM EDT
--- NOTE | ~2025-04-10 | FL_ITS ---
EXAMINATION: FL GUIDANCE ONLY HISTORY: cystoscopy stent placement left COMPARISON: Correlation is made with a CT of the abdomen and pelvis without contrast dated 04/01/2025. TECHNIQUE: Fluoroscopy time: 22.1 seconds. Cumulative Dose: 8.49 mGy. Images: 1. FINDINGS: A single fluoroscopic spot film of the lower pelvis demonstrates the distal portion of a left nephroureteral stent in place. FL/FL guidance in OR IMPRESSION: Fluoroscopy during procedure. Please see procedure report for additional information. Electronically signed by: Luis E Vazquez MD 04/11/2025 07:19 AM EDT
[2025-04-10 15:13] VITALS: BMI 38.3
[2025-04-10 15:17] LABS: UPreg QC Valid YES
--- OUTSIDE RECORDS SUMMARY | 2025-04-10 15:19 | XMS_ITS | Clinical Summary ---
Author Organization [facility] Address [address] [place] [address] Care Team Providers Care Hide Grader Name Role Phone Pcp, No MD Primary [...] patient's age to complete this topic Insurance [facility] Care Teams Hide Grader Relationship Specialty Start Date End Date Justine Alicea MD [address] [place] [address] PCP - General Internal Medicine 03/01/22
--- OUTSIDE RECORDS SUMMARY | 2025-04-10 15:19 | XMS_ITS | Clinical Summary ---
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 bag assembler Nephrolithiasis 08/03/2008 DX:Nephrolithias is IBS (irritable bowel [...] Mammogram Negative Anatomical Region Laterality Modality Other [facility] Provider HEALTH MAINTENANCE Final Result * Pap Smear (02/27/2023) Pap smear Negative [facility] Provider HEALTH MAINTENANCE Final Result * Lipid panel (01/29/2022) LDL/HDL Ratio 4 Triglycerides 142 mg/dL Cholesterol 181 mg/dL HDL 45 mg/dL LDL Cholesterol 108 mg/dL Blood Venous blood specimen / Unknown [facility] Provider LAB BLOOD ORDERABLES Caitie l Result from Last 3 Months or Most Recently Relevant to Health [place] [id number] [facility] [address] [place] [address] Care Teams Recyclable Products Sorter Relationship Specialty Start Date End Date Fany Covington MD [address] [place] [address] PCP - General Internal Medicine 05/02/21
--- OUTSIDE RECORDS SUMMARY | 2025-04-10 15:19 | XMS_ITS | Clinical Summary ---
Author Organization [facility] Address [address] [place] [address] Care Team Providers Care Soft Drink Powder Mixer Name Role Phone Fany Covington MD Primary Care Provider [phone] Allergies Active Allergy Reactions Criticality Noted Date [...] age to complete this topic Care Teams Soft Drink Powder Mixer Relationship Specialty Start Date End Date Fany Covington MD PCP - General Internal Medicine 12/16/22
[2025-04-10 15:29] VITALS: BP 109/82; PULSE 83; RESP 16; TEMP 36.7; O2SAT 97
[2025-04-10] MEDS: Lactated Ringers 1,000 ML 100 ML IVCONT (15:45)
--- NOTE | 2025-04-10 15:57 | PC.NURSE ---
moved to pacu bed 15. report given to felicia valverde
--- NOTE | 2025-04-10 16:37 | MHC.SHP ---
Pre-Procedural Eval Section A - 24 Hr Update-Section A only Date of Service: 04/10/25 The patient is an INPATIENT: No Changes since office visit: No Cold of Flu in the past 2 weeks, No New Medical Problems, No Changes in Medication and No Patient answered all questions The patient has been examined within 24 hours of the surgical procedure. The History & Physical has been completed within 30 days and I have reviewed it.: Yes Section B - Complete if H&P > 30 days Chief Complaint: Calculus of kidney Details of Present Illness: Cystoscopy, left retrograde, left ureteroscopy with laser lithotripsy and stent placed Allergies: Allergies Allergy/AdvReac Type Severity Reaction Status Date / Time sulfamethoxazole (From Allergy Rash Verified 04/06/25 14:38 Bactrim) trimethoprim (From Bactrim) Allergy Rash Verified 04/06/25 14:38 Plan I have reviewed the history and physical and performed a pertinent physical examination on my patient. No changes have occurred unless specified. Time Spent With Patient Time: Total time managing care of this patient today ____ minutes.
[2025-04-10 17:30] VITALS: BP 113/68; PULSE 81; RESP 20; TEMP 36.6; O2SAT 96
[2025-04-10 17:35] VITALS: BP 119/78; PULSE 91; RESP 20; O2SAT 97
--- NOTE | 2025-04-10 17:37 | W.PM.OPN ---
Operative Note Operative Note Date of Service: 04/10/25 Narrative: PreOperative Diagnosis: Left distal ureteric stone with hydro uretero nephrosis Post Operative Diagnosis: Left distal ureteric stone with hydro uretero nephrosis Procedure: - cystoscopy, left retrograde - left dilatation of ureteric orifice under fluoroscopy - left ureteroscopy, laser lithotripsy, stone basketing - left stent placement Surgeon: Dr John Giordano Anesthesia: General Indications for procedure: Had been seen in emergency room. Pain resolved with oral pain medications. Review of CT scan shows 6 mm distal left ureteric stone with proximal hydro uretero nephrosis. Procedure: After informed consent was verified the patient was brought to the operating room and placed in a supine position. Anesthesia was administered per protocol. The patient was placed in a modified dorsal lithotomy position and prepped and draped in a sterile fashion. Safety pause time-out and side of surgery were confirmed. Images were available for review. Antibiotic administration confirmed. A 22 [place]er cystoscope was inserted per urethra. The urethra was without abnormality. The bladder was normal in its entirety. Both ureteric orifices were seen in normal position. Left ureteric orifice appeared moderately inflamed The left ureteric orifice was cannulated and a retrograde examination was performed. Filling defects seen in distal portion. Proximal hydro uretero nephrosis. . A Sensor guidewire was placed but was unable to be advanced further than the distal ureter. The rigid cystoscope was removed. A [place] dilator was placed over the Sensor guidewire and used to dilate the ureteric orifice under fluoroscopy. The dilator was removed. The semi rigid ureteral scope was placed alongside the Sensor guidewire. Stone was encountered in the distal ureter.. Using a 365 micro holmium laser fiber the stone was broken into small pieces using a combination of hammer and dusting techiques. Eight hertz, 0.8 kJ. Stone fragments were allowed to flow out into the ureter. Eventually we were able to pass the rigid ureteral scope through the stone debris. It appeared the sensor wire had entered submucosally at the level of the stone. This was partially withdrawn and then advanced up the renal pelvis. Once the fragments were removed a decision was made to place a ureteric stent. Based on the height of the patient a 6 Fr x 24 cm stent was used. The string was removed from the stent prior to placement. A 6 [place]er by 24 cm double-J stent was placed into the renal pelvis and bladder under a combination of fluoroscopy and direct visualization. The symphisis pubis was used as a radiographic marker to release the stent and good coil was seen within the bladder confirming position Proximal positioning of the stent was confirmed using fluoroscopy. The bladder was emptied. The patient tolerated the procedure well and was extubated in the operating room. They were transferred in stable condition to the recovery area. Pathology: stones Drains: Double J stent as described above
[2025-04-10 17:40] VITALS: BP 120/75; PULSE 87; RESP 20; O2SAT 98
[2025-04-10] MEDS: oxyCODONE HCl Immed Release 5 MG TABLET PO (17:40)
[2025-04-10 17:45] VITALS: BP 119/81; PULSE 87; RESP 20; O2SAT 99
[2025-04-10 18:00] VITALS: BP 125/85; PULSE 75; RESP 20; TEMP 36.5; O2SAT 98
== END 2025-04-10 18:04 | disposition home or self-care (01) ==
PROVIDERS: Nurse Practitioner; PCP Internal Medicine; Visit Provider Urology
PROC: (CPT 52356; principal; 2025-04-10 16:40)
DX: N13.2 Hydronephrosis with renal and ureteral calculous obstruction (principal); Z79.899 Other long term (current) drug therapy; Z88.2 Allergy status to sulfonamides; Z98.890 Other specified postprocedural states
CPT/HCPCS: 52356; 81025; 82365; 88300; C1758; C1769; C2617; J0131; J1885; J1956; J2003; J2405; J2704; J3010; Q9967

== ENCOUNTER → 2025-04-10 15:05 | Outpatient (BNV) | payer OTHER, SELFPAY | PROVIDERS: PCP Internal Medicine; Visit Provider Urology | DX: N13.2 Hydronephrosis with renal and ureteral calculous obstruction (principal) | CPT/HCPCS: 52356; 74420 ==

== ENCOUNTER 2025-04-27 13:56 | Outpatient (AMB) | payer OTHER, SELFPAY ==
--- OUTSIDE RECORDS SUMMARY | 2023-12-30 10:30 | XMS_ITS ---
Author Organization [facility] Address [address] [place] [address] Care Team Providers Care Metalsmith Name Role Phone Ashok Perrin Primary Care Provider Unav Tanvir Dominique Unavailable [phone] Encounters Encounter Location Date Provider Diagnosis [facility] [address] [place] [address] 12/30/2023 Tanvir Mcdermott Plan Of Treatment No Information Progress Notes * Gosia BEEDOB: 3 (40 yo F)Acc No.[id number]:12/30/2023 Progress Notes Patient: Gosia VIRK Provider: Kandice Mcdermott MD :1985 A ge:38 Y S ex:Female Date:12/30/2023 Address:[address] [place] [address] [facility] Pcp:Ashok Perrin Subjective: * Chief Complaints: * * Medical History: Objective: * Vitals: Assessment: Plan: * Treatment: * Billing Information: * Visit Code: * Procedure Codes: * Electronic [place], [id number] on 2025 at 02:47 PM EDT Sign off status: Pending * Provider: Kandice Mcdermott MD Date: 12/30/2023 Generated for Printi ng/Faxing/eTransmitting on: 2025 02:47 PM EDT
--- OUTSIDE RECORDS SUMMARY | 2024-04-12 09:30 | XMS_ITS ---
Author Organization [facility] Address [address] [place] [address] Care Team Providers Care Cupola Worker Name Role Phone Ashok Perrin Primary Care Provider Tanvir Zepeda Unavailable [phone] Medications Medication SIG (Take, Route, Frequency, Duration) Notes Start Date End Date Status Fluticasone Propionate 50 MCG/ACT SHAKE GENTLY AND PRIME PUMP BEFORE USE THEN ADMINISTER 2 SPRAYS INTO EACH NOSTRIL EVERY AM THEN AFTER USE CLEAN TIP AND REPLACE LID. Nasal; Duration: 30 Days Not-Taking methylPREDNISolone 4 MG FOLLOW PACKAGE DIRECTIONS Oral; Duration: 6 Days Not-Taking Propranolol HCl 40 MG TAKE 1 TABLET BY MOUTH DAILY Oral; Duration: 30 Days Not-Taking Qulipta 60 MG 1 tablet Orally Once a day; Duration: 30 days 04/12/2024 Active Gabapentin 400 MG 1 capsule Orally every 8 hours whenever needed for pain.; Duration: 30 days 04/12/2024 Active Bjrakfjmzk-XYXL-Fhwyikdw 50-325-40 MG Oral; Duration: 5 Days Not-Taking Rizatriptan Benzoate 10 MG TAKE 1 TABLET BY MOUTH NEEDED FOR MIGARINE YOU CAN REPEAT AFTER 2 HOURS IF NEEDED MAX OF 2 TABLETS PER 24 HOURS Oral; Duration: 5 Days Not-Taking predniSONE 10 MG Oral; Duration: 10 Days Not-Taking acetaZOLAMIDE 250 MG 1 tablet at night x 3 days, Oral 2 tabs at night x 3 days, then add 1 tab in morning after that.; Duration: 30 days 11/24/2023 Active Dicyclomine HCl 10 MG TAKE 1 CAPSULE BY MOUTH THREE TIMES DAILY NEEDED FOR ABDOMINAL CRAMPS OR PAIN Oral; Duration: 10 Days Active Fexofenadine HCl 180 MG 1 tablet Swallow whole with water; do not take with fruit juices. Orally Once a day 09/07/2023 Active Ibuprofen 200 MG 4 tabs prn Orally Three times a day uses 20 tabs/week 06/09/2023 Active Sertraline HCl 100 MG Oral; Duration: 90 Days Active Vitamin D 50 MCG (1999) 1 tablet Oral ly Once a day 06/09/2023 Active Junel FE .5 1.5-30 MG-MCG TAKE 1 TABLET BY MOUTH EVERY DAY Oral; Duration: 84 Days Active Problems Problem Type SNOMED Code ICD Code Onset Dates Problem Status W/U Status Risk Notes Problem Chronic intractable migraine without aura (849084888629716 ) Chronic migraine without aura, intractable, with status migrainosus (G43.711) Active confirmed Vital Signs Blood pressure systolic 127 mm Hg 04/12/20 24 Blood pressure diastolic 88 mm Hg 024 Heart Rate 100 /min 04/12/2024 Height 63 in 04/12/2024 Weight 217.9 lbs 04/12/2024 BMI 38.6 kg/m2 04/12/2024 Weight-kg 98.84 kg 04/12/2024 Encounters Encounter [facility] Date [facility] [address] [place] [address] [facility]/12/2024 Tanvir Mcdermott Chronic migraine wit hout aura, intractable, with status migrainosus G43.711 Assessments Encounter Date Diagnosis (ICD Code) Assessment Notes Treatment Notes Treatment Clinical Notes Section Notes 04/12/2024 Chronic migraine without aura, intractable, with status migrainosus (ICD-10 - G43.711) Plan Of Treatment Medication Medication Name Sig Start Date Stop Date Notes Qulipta 60 MG 1 tablet Orally Once a day; Duration: 30 days 04/12/2024 Gabapentin 400 MG 1 capsule Orally keagan ry 8 hours whenever needed for pain.; Duration: 30 days 04/12/2024 Next Appt Details Follow Up: 2 Months, Reason: Progress Notes * Gosia BEEDOB: 3 (40 yo F)Acc No.[id number]:04/12/2024 Progress Notes Patient: Gosia VIRK Provider: Kandice Mcdermott MD :1985 A ge:38 Y S ex:Female Date:04/12/2024 Address:[address] [place], [place] [phone] Pcp:Ashok Perrin Subjective: * Chief Complaints: * * Medical History: * Medications: T aking Fexofenadine HCl 180 MG Tablet 1 tablet Swallow whole with water; do not take with fruit juices. Orally Once a day , Taking Ibuprofen 200 MG Tablet 4 tabs prn Orally Three times a day uses 20 tabs/week, Taking Vitamin D 50 MCG (1999 UT) Tablet 1 tablet Orally Once a day , Taking Junel FE 1.5-30 MG-MCG Tablet TAKE 1 TABLET BY MOUTH EVERY DAY Oral , Taking Sertraline HCl 100 MG Tablet Oral , Taking Dicyclomine HCl 10 MG Capsule TAKE 1 CAPSULE BY MOUTH THREE TIMES DAILY NEEDED FOR ABDOMINAL CRAMPS OR PAIN Oral , Taking acetaZOLAMIDE 250 MG Tablet 1 tablet at night x 3 days, Oral 2 tabs at night x 3 days, then add 1 tab in morning after that. , Not-Taking Rizatriptan Benzoate 10 MG Tablet TAKE 1 TABLET BY MOUTH NEEDED FOR MIGARINE YOU CAN REPEAT AFTER 2 HOURS IF NEEDED MAX OF 2 TABLETS PER 24 HOURS Oral , Not-Taking predniSONE 10 MG Tablet Oral , Not-Taking Pesdnzzyqa-CDYO-Zvmeoftk 50-325-40 MG Tablet Oral , Not-Taking Propranolol HCl 40 MG Tablet TAKE 1 TABLET BY MOUTH DAILY Oral , Not-Taking Fluticasone Propionate 50 MCG/ACT Suspension SHAKE GENTLY AND PRIME PUMP BEFORE USE THEN ADMINISTER 2 SPRAYS INTO EACH NOSTRIL EVERY AM THEN AFTER USE CLEAN TIP AND REPLACE LID. Nasal , Not-Taking methylPREDNISolone 4 MG Tablet Therapy Pack FOLLOW PACKAGE DIRECTIONS Oral Objective: * Vitals: B P:127/88mm Hg, HR:100/min, Wt:217.9lbs, Wt-k.84 kg, Ht: 63 in, BMI:38.6Index, Body Surface Area: 2.09. Assessment: * Assessment: 1. C hronic migraine without aura, intractable, with status migrainosus - G43.711 (Primary)? Plan: * Treatment: * Follow Up: 2 Months * Billing Information: * Visit Code: 05523 OFFICE VISIT,EST PT,LEVEL 4. * Procedure Codes: * [place], [id number] on 2025 at 02:47 PM EDT Sign off status: Pending * Provider: Kandice Mcdermott MD Date: 0 04/12/2024 Generated for Chio reis/Loren/Rita on: 0 2025 02:47 PM EDT
--- OUTSIDE RECORDS SUMMARY | 2024-08-03 10:30 | XMS_ITS ---
Author Organization [facility] Address [address] [place] [address] Care Team Providers Care Caser Up Name Role Phone Ashok Perrin Primary Care Provider Tanvir Zepeda Unavailable [phone] REASON FOR VISIT NO CONTACT WITH PATIENT [...] 10 MG Oral; Duration: 10 Days Not-Taking Emwlxdlgtt-UFQA-Vpuqyatq 50-325-40 MG Oral; Duration: 5 Days Not-Taking [...] Active Encounters Encounter Location Date Provider Diagnosis [facility] [address] [place] [address] 08/03/2024 Tanvir Mcdermott Plan Of Treatment No Information Progress Notes * Gosia BEEDOB: 3 (40 yo F)Acc No.[id number]:08/03/2024 Patient: Gosia VIRK Provider: Kandice Mcdermott MD :1985 A ge:39 Y S ex:Female Date:08/03/2024 Address:[address] [place] [phone] Pcp:Ashok Perrin Subjective: * Chief Complaints: * [...] predniSONE 10 MG Tablet Oral , Not-Taking Uxktwbxdgn-PCBQ-Jmfkbiab 50-325-40 MG Tablet Oral , Not-Taking Propranolol [...] * Electronic [place], [id number] on 2025 at 02:47 PM EDT Sign off status: Pending * Provider: Kandice Mcdermott MD Date: 1 10/04/2023 Generated for Chio reis/Loren/Rita on: 0 2025 02:47 PM EDT
--- NOTE | 2025-04-27 13:59 | A.OFFVIS_ITS ---
Intake Visit Reasons: Stent removal Intake Note: Patient is present for CYSTOSCOPY WITH STENT REMOVAL Urology Rx:Tamsulosin,Tamsulosin,solifenacin Blood Thinners:none Imaging completed:none LOT#[id number] EXP: 09/04/2027 Land Classifier Required: No Accompanied by: Self / Same As Patient Allergies sulfamethoxazole (From Bactrim) Allergy (Verified 04/27/25 14:00) Rash trimethoprim (From Bactrim) Allergy (Verified 04/27/25 14:00) Rash HPI Comments Details: Gosia is a pleasant female. She is a patient of Dr. Covington. She is seen for the following urologic conditions - nephrolithiasis Here for stent removal Nephrolithiasis Initial presentation through hospital Left-sided UVJ stone Imaging 6 mm Stone composition calcium oxalate monohydrate 95% Plan - encourage fluids - reduce salt - interval imaging PFSH Surgical History H/O wrist surgery Previous section History of surgery Social History Patient Tobacco Use Status: Former Tobacco user Advance Directives Date on File: 04/10/25 Review of Systems Const Denies chills and Denies fever(s) Card Reports no additional complaints and Denies syncope Resp Denies cough GI Denies abdominal pain and Denies heartburn Reports as per HPI and Denies change in libido Neuro Denies syncope Psych Denies change in libido Endo Denies change in libido Physical Exam Const General: cooperative, healthy appearing, comfortable and no acute distress Orientation/consciousness: patient oriented x3 HEENT Face and sinus: Yes normal facial exam Mouth: moist mucous membranes Neck Neck: Yes normal visual inspection, Yes full ROM and Yes trachea midline Chest Chest palpation & inspection: normal inspection of the chest Resp Effort & Inspection: normal respiratory effort, able to speak in complete sentences and no respiratory distress GI Inspection: Yes normal to inspection Back/Spine/Pelvis Cervical Spine: normal cervical lordosis Thoracic/Lumbar Spine: thoracic and lumbar spine normal to inspection Skin General skin exam: no rashes or lesions noted Neuro General: patient oriented x3, gait normal, tone normal and moves all extremities Extrem General: Yes normal to inspection and Yes capillary refill normal Office Procedures Cystoscopy Consent Discussed risk and benefit or proposed procedure with the patient. Information consent for procedure given to the patient. Discussed technical aspects, risks, benefits and alternatives in full. Addressed all of the patient's questions and concerns regarding the procedure. The patient demonstrated knowledge and und erstanding. They wish to proceed with this procedure. Preparation The patient was prepped in the usual manner. A gluten settling tender was present and in the room. Genitalia was prepped with betadine solution in a sterile manner. Lidocaine Jelly 2% was placed into the urethra and 16Fr flexible Olympus cystoscope was inserted into the meatus after adequate lubrication. Procedure A well lubricated 16 Zambian cystoscope was placed No abnormality noted of urethra during placement Indwelling stent seen within bladder emerging from left ureteric orifices The stent was grasped with a 3 prong grasper and removed without difficulty The patient tolerated the procedure well [id number] with stent removal DISPOSABLE SCOPE URO-G FLEXIBLE SCOPE Procedure code (CPT) selection complete Office Meds lidocaine HCl 2 % mucosal jelly in applicator Performing Provider: John Giordano MD Performing Location: [facility] Administered by: Kavon Ch LPN on 04/27/25 14:11 Dose Route Admin Location Dispensed Lot Number Expiration Date [facility] Tunnel Elastic Operator Zigzag 10 mL intra-urethral 10 mL nitrofurantoin monohydrate/macrocrystals 100 mg capsule Performing Provider: John Giordano MD Performing Location: [facility] Administered by: Kavon Ch LPN on 04/27/25 14:11 Dose Route Admin Location Dispensed Lot Number Expiration Date [place] Tunnel Elastic Operator Zigzag 100 mg PO 1 cap naproxen 500 mg tablet Performing Provider: John Giordano MD Performing Location: [facility] Administered by: Kavon Ch LPN on 04/27/25 14:11 Dose Route Admin Location Dispensed Lot Number Expiration Date [facility] Tunnel Elastic Operator Zigzag 500 mg PO 1 tab Assessment & Plan Assessment & Plan (1) Nephrolithiasis: Code(s): N20.0 - Calculus of kidney Category: Medical Plan Six-month follow-up imaging Orders: Orders AMB Cystoscopy Today N20.0 - Calculus of kidney Patient Instructions: This note is constructed using voice recognition software. While every effort has been made to ensure accuracy catalyst manufacturing operator errors may have been included. Imaging studies, laboratory and physical exam results were discussed and reviewed in detail. No major barriers to patient understanding were identified. An opportunity to ask questions regarding the treatment plan was provided. All questions were answered. The patient expressed understanding and agreement with the above treatment plan. The patient is aware they should contact our office by phone for worsening of their current condition or the appearance of new urologic symptoms. Compliance is encouraged with any medications and followup testing that is ordered. It is a privilege to participate in the urologic care of your patient. If you have any questions or concerns regarding treatment for the above conditions, or other urologic issues, please do not hesitate to contact me. The office telephone contact is [phone]. Sincerely, Dr John Giordano MD, [facility] - Urology Compassionate Specialist Care for the Genitourinary System Coding Level of Care Code Est Pt Level 3 (35831) Complex EM visit Add On G2211 Diagnoses Nephrolithiasis N20.0 CPT Codes Cystoscopy - CPT: 24435-[id number] with stent removal ([id number])
--- OUTSIDE RECORDS SUMMARY | 2025-04-27 14:48 | XMS_ITS | Clinical Summary ---
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 Nephrolithiasis 08/03/2008 DX:Nephrolithias is IBS (irritable bowel [...] Mammogram Negative Anatomical Region Laterality Modality Other [facility] Provider HEALTH MAINTENANCE Final Result * Pap Smear (02/27/2023) Pap smear Negative [facility] Provider HEALTH MAINTENANCE Final Result * Lipid panel (01/29/2022) LDL/HDL Ratio 4 Triglycerides 142 mg/dL Cholesterol 181 mg/dL HDL 45 mg/dL LDL Cholesterol 108 mg/dL Blood Venous blood specimen / Unknown [facility] Provider LAB BLOOD ORDERABLES Caitie l Result from Last 3 Months or Most Recently Relevant to Health [place] [id number] [facility] [address] [place] [address] Care Teams Background Investigator Relationship Specialty Start Date End Date Fany Covington MD [address] [place] [address] PCP - General Internal Medicine 05/02/21
--- OUTSIDE RECORDS SUMMARY | 2025-04-27 14:48 | XMS_ITS | Clinical Summary ---
Author Organization [facility] Address [address] [place] [address] Care Team Providers Care Metal Engraver Name Role Phone Pcp, No MD Primary [...] mg (7) per tablet Januaryl FE 09/19 (28) 1 mg-20 mcg (21)/75 mg (7) tablet [...] patient's age to complete this topic Insurance [facility] Care Teams Metal Engraver Relationship Specialty Start Date End Date Justine Alicea MD [address] [place] [address] PCP - General Internal Medicine 03/01/22
--- OUTSIDE RECORDS SUMMARY | 2025-04-27 14:48 | XMS_ITS | Clinical Summary ---
Author Organization [facility] Address [address] [place] [address] Care Team Providers Care Card Table Attendant Name Role Phone Fany Covington MD Primary Care Provider [phone] Allergies Active Allergy Reactions Criticality Noted Date [...] age to complete this topic Care Teams Card Table Attendant Relationship Specialty Start Date End Date Fany Covington MD PCP - General Internal Medicine 12/16/22
--- OUTSIDE RECORDS SUMMARY | 2025-04-27 14:48 | XMS_ITS | Patient Health Record ---
Author Organization [facility] Address [address] [place] [address] Care Team Providers Care Paper Cup Machine Tender Name Role Phone Ashok Perrin Primary Care Provider Tanvir Zepeda Unavailable [phone] Allergies Allergen (clinical drug ingredient) Drug/Non Drug Allergy documented on EMR Reaction Allergy Type Onset Date Status sulfamethoxazole / trimethoprim Bactrim rash Drug Allergy Active Reason For Referral No Information Medications Medication SIG (Take, Route, Frequency, Duration) Notes Start Date End Date Status predniSONE 10 MG Oral; Duration: 10 Days Not-Taking Nsvhdflsvg-NEAG-Vltczamb 50-325-40 MG Oral; Duration: 5 Days Not-Taking Propranolol HCl 40 MG TAKE 1 TABLET BY MOUTH DAILY Oral; Duration: 30 Days Not-Taking Fexofenadine HCl 180 MG 1 tablet Swallow whole with water; do not take with fruit juices. Orally Once a day 09/07/2023 Active Fluticasone Propionate 50 MCG/ACT SHAKE GENTLY AND PRIME PUMP BEFORE USE THEN ADMINISTER 2 SPRAYS INTO EACH NOSTRIL EVERY AM THEN AFTER USE CLEAN TIP AND REPLACE LID. Nasal; Duration: 30 Days Not-Taking Ibuprofen 200 MG 4 tabs prn Orally Three times a day uses 20 tabs/week 06/09/2023 Active methylPREDNISolone 4 MG FOLLOW PACKAGE DIRECTIONS Oral; Duration: 6 Days Not-Taking Vitamin D 50 MCG (1999 UT) 1 tablet Oral ly Once a day 06/09/2023 Active Gabapentin 400 MG 1 capsule Orally every 8 hours whenever needed for pain.; Duration: 30 days 04/12/2024 Active Junel FE 1.530 1.5-30 MG-MCG TAKE 1 TABLET BY MOUTH EVERY DAY Oral; Duration: 84 Days Active Sertraline HCl 100 MG Oral; Duration: 90 Days Active Dicyclomine HCl 10 MG [...] 24 HOURS Oral; Duration: 5 Days Not-Taking Social History Tobacco Use: Social History Observation Description Date Details (start date - stop date) Never Smoker NA - NA Household Question Answer Notes Marital status: lives with husb and 3 kids, 1 dog 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 Level of education: finished college Tobacco Use/Smoking Question Answer Notes Tobacco use: nonsmoker Problems Problem Type SNOMED Code ICD Code Onset Dates Problem Status W/U Status Risk Notes Problem Chronic intractable migraine without aura (238429726287319 ) Chronic migraine without aura, intractable, with status migrainosus (G43.711) Active confirmed Encounters Encounter Location Date [facility] [address] [place] [id number] 08[facility]03[facility]2024 [facility] [address] [place] [phone] 05/04/2024 [facility] Mc[facility]ott [facility] [address] [place] [phone] 05/18/2024 Tanvir Mcdermott Plan Of Treatment No Information Insurance Providers Payer Name Payer Address Payer Phone Subscriber Number Group Number Insured Name Patient Relationship to Insured Coverage Start Date Coverage End Date [facility] [address] FABI [address] [facility] [facility] EVON Vargas [id number] Gosia Bee Self - patient is the insured Medical (General) History Medical History History ICD Code abdominal cramps IBS-d Surgical History Surgery Date(Month/Year) Right knee lateral tendon release 1999 Left knee ditto 2000 Right wrist arthroscopy 2002 2012 2017
== END 2025-04-27 14:41 | disposition home or self-care (01) ==
LOC: HO.HUSH 13:57
PROVIDERS: PCP Internal Medicine; Visit Provider Urology
DX: N20.0 Calculus of kidney (principal)
CPT/HCPCS: 52310

== ENCOUNTER → 2025-04-27 13:56 | Outpatient (BNVA) | payer OTHER, SELFPAY | PROVIDERS: PCP Internal Medicine; Visit Provider Urology | DX: N20.0 Calculus of kidney (principal) | CPT/HCPCS: 52310; 81003 ==

== ENCOUNTER 2025-06-09 09:15 | Outpatient (AMB) | payer OTHER, SELFPAY ==
--- OUTSIDE RECORDS SUMMARY | 2023-12-24 04:47 | XMS_ITS ---
Author Organization [facility] Address [address] [place] [address] Care Team Providers Care Change Management Facilitator Name Role Phone Ashok Perrin Primary Care Provider Unav Tanvir Dominique Unavailable [phone] REASON FOR VISIT Needs call back from MD Encounters Encounter Location Date Provider Diagnosis [facility] [address] [place] [address] 12/24/2023 Tanvir Mcdermott Plan Of Treatment No Information Progress Notes * Gosia BEEDOB: 3 (40 yo F)Acc No.[id number]:12/24/2023 Patient: Gosia VIRK :1985 A ge:38 Y S ex:Female Address:[address] [place] [address] [place] [address] Subjective: * Chief Complaints: * N eeds call back from MD * Medical History: * Surgical History: * Hospitalization/Major Diagno stic Procedure: * Medications: Objective: * Vitals: * Physical Examination: Assessment: Plan: * Treatment: * Procedure Codes: * * Date:
--- OUTSIDE RECORDS SUMMARY | 2023-12-30 10:30 | XMS_ITS ---
Author Organization [facility] Address [address] [place] [address] Care Team Providers Care Steel Placer Name Role Phone Ashok Perrin Primary Care Provider Unav Tanvir Dominique Unavailable [phone] Encounters Encounter Location Date Provider Diagnosis [facility] [address] [place] [address] 12/30/2023 Tanvir Mcdermott Plan Of Treatment No Information Progress Notes * Gosia BEEDOB: 3 (40 yo F)Acc No.[id number]:12/30/2023 Progress Notes Patient: Gosia VIRK Provider: Kandice Mcdermott MD :1985 A ge:38 Y S ex:Female Date:12/30/2023 [facility] [place], [place] [id number] Pcp:Ashok Perrin Subjective: * Chief Complaints: * * Medical History: Objective: * Vitals: Assessment: Plan: * Treatment: * Billing Information: * Visit Code: * Procedure Codes: * Electronic [place], [id number] on 06/09/2025 at 09:43 AM EDT Sign off status: Pending * Provider: Kandice Mcdermott MD Date: 12/30/2023 Generated for Carmeli ng/Faonelg/eTransmitting on: 1 09:43 AM EDT
--- OUTSIDE RECORDS SUMMARY | 2024-04-12 09:30 | XMS_ITS ---
Author Organization [facility] Address [address] [place] [address] Care Team Providers Care Finish Off Operator Name Role Phone Ashok Perrin Primary Care Provider Tanvir Zepeda Unavailable [phone] Medications Medication SIG (Take, Route, Frequency, Duration) [...] for pain.; Duration: 30 days 04/12/2024 Active Oewjaqzuuk-TNQQ-Gyqwwcik 50-325-40 MG Oral; Duration: 5 Days Not-Taking [...] Notes Problem Chronic intractable migraine without aura ([id number] ) Chronic migraine without aura, intractable, with status migrainosus (G43.711) Active confirmed Vital Signs Blood pressure systolic 127 mm Hg 04/12/20 24 Blood pressure diastolic 88 mm Hg 024 Heart Rate 100 /min 04/12/2024 Height 63 in 04/12/2024 Weight 217.9 lbs 04/12/2024 BMI 38.6 kg/m2 04/12/2024 Weight-kg 98.84 kg 04/12/2024 Encounters Encounter Location Date Provider Diagnosis [facility] [address] [place] [address] 04/12/2024 Tanvir Mcdermott Chronic migraine wit hout [...] * Gosia BEEDOB: 3 (40 yo F)Acc No.[id number]:04/12/2024 Progress Notes Patient: Gosia VIRK Provider: Kandice Mcdermott MD :1985 A ge:38 Y S ex:Female Date:04/12/2024 Address:[address] [place], [place] [id number] Pcp:Ashok Perrin Subjective: * Chief Complaints: * [...] predniSONE 10 MG Tablet Oral , Not-Taking Rtfmiwerjk-ZUTH-Wgjnygyu 50-325-40 MG Tablet Oral , Not-Taking Propranolol [...] Months * Billing Information: * Visit Code: 88239 OFFICE VISIT,EST PT,LEVEL 4. * Procedure Codes: * [place], [id number] on 06/09/2025 at 09:43 AM EDT Sign off status: Pending * Provider: Kandice Mcdermott MD Date: 0 04/12/2024 Generated for Chio reis/Loren/Rita on: 1 09:43 AM EDT
--- OUTSIDE RECORDS SUMMARY | 2024-08-03 10:30 | XMS_ITS ---
Author Organization [facility] Address [address] [place] [address] Care Team Providers Care Coffee Plantation Worker Name Role Phone Ashok Perrin Primary Care Provider Tanvir Zepeda Unavailable [phone] REASON FOR VISIT NO CONTACT WITH PATIENT [...] 10 MG Oral; Duration: 10 Days Not-Taking Whgjweafdd-VMOT-Kpxirmnx 50-325-40 MG Oral; Duration: 5 Days Not-Taking [...] Active Encounters Encounter Location Date Provider Diagnosis [facility] [address] [place] [address] 08/03/2024 Tanvir Mcdermott Plan Of Treatment No Information Progress Notes * Gosia BEEDOB: [birth year] (40 yo F)Acc No.[id number]:08/03/2024 Patient: Gosia VIRK Provider: Kandice Mcdermott MD :1985 A ge:39 Y S ex:Female Date:08/03/2024 Address:[address] [place] [phone] Pcp:Ashok Perrin Subjective: * Chief Complaints: * [...] predniSONE 10 MG Tablet Oral , Not-Taking Jilrueafqg-UBIG-Jsxjssdw 50-325-40 MG Tablet Oral , Not-Taking Propranolol [...] * Electronic [place], [id number] on 06/09/2025 at 09:42 AM EDT Sign off status: Pending * Provider: Kandice Mcdermott MD Date: 1 10/04/2023 Generated for Chio reis/Loren/Rita on: 1 09:42 AM EDT
--- NOTE | 2025-06-09 09:16 | MHC.OFFVIS ---
Vital Signs 06/09/25 09:18 Height 5 ft 3 in Weight 216 lb BMI 38.3 BP 132/88 Blood Pressure Location Lt brachial Position Sitting Respiration 16 Pulse 88 Pulse Source Pulse Oximeter Pulse Oximetry (%) 97 Oxygen Delivery Method Room Air Intake Visit Reasons: Botox for Migraine Home Theater Specialist Required: No Automotive Brake Technician: Automotive Brake Technician Present Accompanied by: Brad Hawk Allergies sulfamethoxazole (From Bactrim) Allergy (Verified 06/09/25 09:19) Rash trimethoprim (From Bactrim) Allergy (Verified 06/09/25 09:19) Rash Medication List - Last Reconciled 06/09/25 by Joanne Doss LPN atomoxetine (Strattera) 36 mg PO DAILY cholecalciferol (vitamin D3) 50 mcg PO DAILY loratadine (Claritin) 10 mg PO DAILY methylphenidate HCl ER (Concerta) 18 mg PO DAILY norethindrone-e.estradiol-iron 1 mg-20 mcg (21)/75 mg (7) (Blisovi Fe / (28)) 1 tab PO DAILY sertraline 100 mg PO DAILY [facility] Surgical History H/O wrist surgery Previous section History of surgery Social History Patient Tobacco Use Status: Former Tobacco user Advance Directives Date on File: 04/10/25 Physical Exam Vital Signs: Last Vital Signs Pulse 88 06/09/25 09:18 Resp 16 06/09/25 09:18 BP 132/88 06/09/25 09:18 Pulse Ox 97 06/09/25 09:18 Oxygen Delivery Method Room Air 06/09/25 09:18 BMI result Body Mass Index 38.3 Office Procedures Botulinum toxin Injection Details: Chemodenervation of Scalp and Neck for Chronic Migraine (155 units as per protocol approved by FDA) After obtaining written consent, pre-procedure blood pressure and heart rate were stable and recorded in the nursing record. The patient was placed in the sitting position. Bilaterally, 31 points along ship/rec/doc control (2 sites), procerus (1 site), frontalis (4 sites), temporalis (8 sites), occipitalis (6 sites), cervical paraspinals (4 sites), and trapezius (6 sites) were identified and prepped with alcohol. Using sterile technique, a 30 gauge 0.5 inch needle (for all sites other than trapezius) and 25 gauge 1.5 inch (for trapezius only) needle was introduced into each muscle and 5 units per site was injected. A total of 155 units were used. Aspirations were negative for blood, CSF and air prior to injection at all sites. The needle was removed, skin cleansed and a sterile bandage was applied where needed. The patient tolerated the procedure well and no complications were encountered. Following the procedure the patient's vital signs were stable. The patient was discharged home in good condition with post-procedural instructions. Time Out: Immediately prior to the procedure, the following was verbally confirmed that there is a signed consent form and that the correct patient, planned procedure, site and side are consistent with documentation and that necessary equipment and/or blood products are available prior to the start of the case. Complications: none EBL: <5 cc 33880 - Migraine Procedure code (CPT) selection complete Office Meds onabotulinumtoxinA 100 unit solution for injection Performing Provider: Noe Miguel MD Performing Location: [facility] Administered by: Noe Miguel MD on 06/09/25 09:59 Dose Route Admin Location Dispensed Lot Number Expiration Date [facility] Inbound Sales Advisor 100 unit IM 155 ea [id number] 07/31/27 Total Dispensed Waste 155 ea 0 % Assessment & Plan Assessment & Plan (1) Migraine headache: Code(s): G43.909 - Migraine, unspecified, not intractable, without status migrainosus Category: Medical Plan Patient is status post Botox migrain protocol. Patient tolerated procedure well and was discharged home in stable condition with discharge instructions. All questions were answered. Repeat in 3 months. Orders: Orders AMB Botulinum toxin Injection Today G43.909 - Migraine, unspecified, not intractable, without status migrainosus Coding Level of Care Code Procedure Only Diagnoses Migraine headache G43.909 CPT Codes Botox Injection - Botox 3: 53259 - Migraine ([id number])
[2025-06-09 09:18] VITALS: BP 132/88; PULSE 88; RESP 16; O2SAT 97; BMI 38.3
--- OUTSIDE RECORDS SUMMARY | 2025-06-09 09:43 | XMS_ITS | Clinical Summary ---
Author Organization [address] Address [address] [place], [place] [address] [address] Phone Care Team Providers Care Environmental Services Lead Name Role Phone Fany Covington MD Primary Care Provider [phone] Allergies Active Allergy Reactions Criticality Noted Date [...] 11/27/11, sees Dr Morrison, [facility] draw end hand HPV positive 2017 Nephrolithiasis 08/03/2008 Raynaud disease 04/05/2008 Overview (06/14/2024): Toes Depression 04/05/2008 Overview (06/14/2024): Sees psychiatrist Allergic rhinitis 04/05/2008 Immunizations Immunization Administration Dates Next Due Influenza Quadravalent, MDCK [...] , sees Dr Morrison, [facility] draw end hand Nephrolithiasis 08/03/2008 DX:Nephrolithias is IBS (irritable bowel [...] of 3 - 19+ 3-dose series) 2002 HPV Vaccines (1 - 3-dose SCDM series) 2010 HIV Screening 08/03/2022 Hepatitis C Screening 08/03/2022 Social Influencers of Health Screening 08/03/2022 Depression Screening 08/31/2024 COVID-19 Vaccine ( season) 2025 08/26/2021, 01/11/2021, 12/14/2020 Influenza Vaccine (#1) 2025 , 08/26/2021, 06/26/2020, Additional history exists Breast Cancer Screening 06/12/2025 06/12/2023 Cervical Cancer Screening: Pap Smear 02/27/2026 02/27/2023 DTaP,Tdap,and Td Vaccines (4 - Td or Tdap) 08/18/2026 08/18/2016, 12/11/2012, 04/05/2008 Cholesterol Screening (Lipid Panel) 01/29/2027 01/29/2022 RSV Immunization Adult Patients (1 - 1-dose 75+ series) 2058 HIB Vaccines Aged Out No longer eligi [...] Mammogram Negative Anatomical Region Laterality Modality Other [facility] Provider MD HEALTH MAINTENANCE Final Result * Pap Smear (02/27/2023) Pap smear Negative [facility] Provider MD HEALTH MAINTENANCE Final Result * Lipid panel (01/29/2022) LDL/HDL Ratio 4 Triglycerides 142 mg/dL Cholesterol 181 mg/dL HDL 45 mg/dL LDL Cholesterol 108 mg/dL Blood Venous blood specimen / Unknown [facility] Provider LAB BLOOD ORDERABLES Caitie l Result from Last 3 Months or Most Recently Relevant to Health Maintenance [place] [id number] [facility] Care Teams Environmental Services Lead Relationship Specialty Start Date End Date Fany Covington MD [address] [place] [address] PCP - General Internal Medicine 05/02/21
--- OUTSIDE RECORDS SUMMARY | 2025-06-09 09:44 | XMS_ITS | Clinical Summary ---
Author Organization [facility] Address [address] [place] [address] Care Team Providers Care Secy Name Role Phone Fany Covington MD Primary Care Provider [phone] Allergies Active Allergy Reactions Criticality Noted Date [...] (Pap Smear) 2004 COVID-19 Vaccine ( season) 2025 08/26/2021 Influenza Vaccine (#1) 2025 , 06/26/2020, 07/07/2018, Additional history exists DTap / Tdap / Td (4 - Td or Tdap) 08/18/2026 08/18/2016, 12/11/2012, 04/05/2008 Pneumococcal Vaccine Aged Out No long er eligible based on patient's age to complete this topic RSV Ped < 20 months Aged Out No longe r eligible based on patient's age to complete this topic Care Teams Secy Relationship Specialty Start Date End Date Fany Covington MD PCP - General Internal Medicine 12/16/22
--- OUTSIDE RECORDS SUMMARY | 2025-06-09 09:44 | XMS_ITS | Patient Health Record ---
Author Organization [facility] Address [address] [place] [address] Care Team Providers Care Cigarette Filter Inspector Name Role Phone Ashok Perrin Primary Care Provider Tanvir Zepeda Unavailable [phone] Allergies Allergen (clinical drug ingredient) Drug/Non Drug Allergy documented on EMR Reaction Allergy Type Onset Date Status sulfamethoxazole / trimethoprim Bactrim rash Drug Allergy Active Reason For Referral No Information Medications Medication SIG (Take, Route, Frequency, Duration) Notes Start Date End Date Status predniSONE 10 MG Oral; Duration: 10 Days Not-Taking Fhnwfaziob-QPJP-Qhontkth 50-325-40 MG Oral; Duration: 5 Days Not-Taking [...] and 3 kids, 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 [address] [place] [address] 08/03/2024 Tanvir Mcdermott Plan Of Treatment No Information Insurance Providers Payer Name Payer Address Payer Phone Subscriber Number Group Number Insured Name Patient Relationship to Insured Coverage Start Date Coverage End Date [facility] [address] FABI 1500 [facility] EVON Vargas [id number] Gosia Bee Self - patient is the insured Medical (General) History Medical History History ICD Code abdominal cramps IBS-d Surgical History Surgery Date(Month/Year) Right knee lateral tendon release 1999 Left knee ditto 2000 Right wrist arthroscopy 2002 2012 2017
--- OUTSIDE RECORDS SUMMARY | 2025-06-09 09:44 | XMS_ITS | Clinical Summary ---
Author Organization [facility] Address [address] [place] [address] Care Team Providers Care Flour Mixer Name Role Phone Pcp, No MD Primary [...] 19+ 3-dose series) 2002 Pap Smear 2004 HPV Vaccines (1 - 3-dose SCDM series) 2010 Cervical Cancer Screening 2013 HPV/Cotest 2013 COVID-19 Vaccine (4 - 2024- season) 2025 08/26/2021, 01/11/2021, 12/14/2020 Influenza Vaccine (#1) 2025 , 07/07/2018, 05/09/2016, Additional history exists DTaP,Tdap,and Td Vaccines (4 - Td or Tdap) 08/18/2026 08/18/2016, 12/11/2012, 04/05/2008 Zoster Vaccines (1 of 2) 2033 Hepatitis A Vaccines Aged Out No long [...] patient's age to complete this topic Insurance [facility] Care Teams Flour Mixer Relationship Specialty Start Date End Date Justine Alicea MD [address] [place], [place] [id number] PCP - General Internal Medicine 03/01/22
== END 2025-06-09 09:38 | disposition home or self-care (01) ==
LOC: HO.PMC 09:15
PROVIDERS: PCP Internal Medicine; Visit Provider Internal Medicine
DX: G43.909 Migraine, unspecified, not intractable, without status migrainosus (principal)
CPT/HCPCS: 64615

== ENCOUNTER → 2025-06-09 09:15 | Outpatient (BNVA) | payer OTHER, SELFPAY | PROVIDERS: PCP Internal Medicine; Visit Provider Internal Medicine | DX: G43.719 Chronic migraine without aura, intractable, without status migrainosus (principal) | CPT/HCPCS: 64615; J0585 ==